=== PATIENT | male | born 1940 | race Caucasian/White ===

== ENCOUNTER → 2024-03-13 | Outpatient (CLI) | payer MEDICARE, SELFPAY ==
[2024-03-13 10:54] LABS: Collection Type, Urine Clean Catch; Squamous Epithelial Cell,Urine 0 /hpf (0-5)
[2024-03-13 11:17] LABS: Basophils % (Auto) 1 % (0-2.5); Eosinophils # (Auto) 0.2 Thou/mm3 (0.0-0.5); Eosinophils % (Auto) 3 % (0-10); Hematocrit 30.6 % (41.0-53.0); Hemoglobin 9.5 g/dL (13.5-16.0); Immature Granulocytes % (Auto) 0 % (0-0); Immature Granulocytes Auto 0.01 Thou/mm3 (0.00-0.00); Lymphocytes # (Auto) 1.2 Thou/mm3 (1.0-4.8); Lymphocytes % (Auto) 21 % (10-50); Mean Corpuscular Hemoglobin 28.2 pg (25.0-35.0); Mean Corpuscular Volume 91 fL (80-100); Monocytes # (Auto) 0.5 Thou/mm3 (0.0-0.8); Monocytes % (Auto) 10 % (0-12); Neutrophils # (Auto) 3.6 Thou/mm3 (1.8-7.7); Neutrophils % (Auto) 66 % (37-80); Nucleated Red Blood Cell % 0 /100 WBC (0); Platelet Count 230 Thou/mm3 (140-440); RDW Standard Deviation 45.9 fL (35.1-43.9); Red Blood Count 3.37 Miln/mm3 (4.50-5.90); White Blood Count 5.5 Thou/mm3 (3.8-10.6)
[2024-03-13 11:18] LABS: Bilirubin,Urine Negative (Negative); Blood,Urine Negative (Negative); Clarity,Urine Clear (Clear/Hazy); Color,Urine Lt-Yellow (Lt Yel-Yel); Glucose, Urine Negative (Negative); Ketones,Urine Negative (Negative); Leukocyte Esterase,Urine Negative (Negative); Nitrite,Urine Negative (Negative); PH,Urine 6.5 (5.0-7.0); Protein,Urine Trace (Neg - Trace); RBC,Urine 2 /hpf (0-3); Specific Gravity,Urine 1.009 (1.001-1.035); Urobilinogen,Urine Negative mg/dL (0.0-1.0); WBC,Urine < 1 /hpf (0-5)
[2024-03-13 11:38] LABS: Glucose Estimated Average 111 mg/dL (80-131); Hemoglobin A1C 5.5 % Hgb (4.8-6.0)
[2024-03-13 11:48] LABS: Anion Gap 8 (7-16); BUN/Creatinine Ratio 13 Ratio (12-20); Blood Urea Nitrogen 32 mg/dL (9-23); Carbon Dioxide 26.1 mMol/L (20.0-31.0); Chloride 103 mMol/L (98-107); Creatinine (Component) 2.4 mg/dL (0.6-1.3); Glucose 111 mg/dL (74-106); Osmolality,Calculated 281 (275-295); Potassium 4.6 mMol/L (3.4-5.1); Sodium 137 mMol/L (136-145); Thyroid Stimulating Hormone 0.55 uIU/mL (0.55-4.78); Uric Acid 8.8 mg/dL (3.7-9.2); eGFR 26 See Note
[2024-03-13 12:01] LABS: Parathyroid Hormone Intact 86.4 pg/ml (18.5-88.0)
[2024-03-20 06:28] LABS: ANCA Screen POSITIVE (NEGATIVE); Myeloperoxidase Ab <1.0 AI (<1.0); Proteinase-3 Ab <1.0 AI (<1.0)
== END | disposition home or self-care (01) ==
LOC: COPL 10:21
PROVIDERS: PCP Internal Medicine; Referring Provider Internal Medicine; Visit Provider Internal Medicine
DX: E11.22 Type 2 diabetes mellitus with diabetic chronic kidney disease (principal); N18.4 Chronic kidney disease, stage 4 (severe); N01.3 Rapidly progressive nephritic syndrome with diffuse mesangial proliferative glomerulonephritis; E03.9 Hypothyroidism, unspecified; N17.9 Acute kidney failure, unspecified
CPT/HCPCS: 36415; 80069; 81001; 83036; 83970; 84443; 84550; 85025; 86021; 86036; 86037

== ENCOUNTER → 2024-06-13 | Outpatient (CLI) | payer MEDICARE, SELFPAY ==
[2024-06-13 10:41] LABS: Basophils % (Auto) 1 % (0-2.5); Eosinophils # (Auto) 0.1 Thou/mm3 (0.0-0.5); Eosinophils % (Auto) 3 % (0-10); Hematocrit 34.2 % (41.0-53.0); Hemoglobin 10.9 g/dL (13.5-16.0); Immature Granulocytes % (Auto) 1 % (0-0); Immature Granulocytes Auto 0.02 Thou/mm3 (0.00-0.00); Lymphocytes # (Auto) 1.1 Thou/mm3 (1.0-4.8); Lymphocytes % (Auto) 25 % (10-50); Mean Corpuscular HGB Conc 31.9 g/dl (31.0-37.0); Mean Corpuscular Hemoglobin 28.2 pg (25.0-35.0); Mean Corpuscular Volume 88 fL (80-100); Monocytes # (Auto) 0.4 Thou/mm3 (0.0-0.8); Monocytes % (Auto) 9 % (0-12); Neutrophils # (Auto) 2.6 Thou/mm3 (1.8-7.7); Neutrophils % (Auto) 62 % (37-80); Nucleated Red Blood Cell % 0 /100 WBC (0); Platelet Count 197 Thou/mm3 (140-440); Red Blood Count 3.87 Miln/mm3 (4.50-5.90); White Blood Count 4.2 Thou/mm3 (3.8-10.6)
[2024-06-13 10:51] LABS: Glucose Estimated Average 108 mg/dL (80-131); Hemoglobin A1C 5.4 % Hgb (4.8-6.0)
[2024-06-13 11:02] LABS: Parathyroid Hormone Intact 144.7 pg/ml (18.5-88.0)
[2024-06-13 11:09] LABS: Vitamin D 25 Hydroxy Total 48.4 ng/mL (7.3-40.2)
[2024-06-13 11:25] LABS: Alanine Aminotransferase 12 U/L (10-49); Albumin/Globulin Ratio 1.9 (1.2-2.2); Alkaline Phosphatase 67 U/L (46-116); Anion Gap 7 (7-16); Aspartate Amino Transferase 14 U/L (0-34); BUN/Creatinine Ratio 17 Ratio (12-20); Bilirubin,Total 0.3 mg/dL (0.3-1.2); Blood Urea Nitrogen 41 mg/dL (9-23); Calcium 9.1 mg/dL (8.3-10.6); Calcium (Corrected) 9.1 mg/dL (8.5-10.1); Carbon Dioxide 23.9 mMol/L (20.0-31.0); Cardiac Risk Estimate 2.6 RATIO (4.0-6.7); Chloride 112 mMol/L (98-107); Cholesterol 124 mg/dL (132-200); Creatinine (Component) 2.4 mg/dL (0.6-1.3); Globulin 2.1 gm/dL (2.3-3.5); Glucose 93 mg/dL (74-106); HDL Cholesterol 48 mg/dL (40-60); LDL Cholesterol,Calculated 62 mg/dL (0-130); Osmolality,Calculated 295 (275-295); Sodium 143 mMol/L (136-145); Thyroid Stimulating Hormone 0.92 uIU/mL (0.55-4.78); Total Protein 6.1 gm/dL (5.7-8.2); Triglycerides 68 mg/dL (30-150); eGFR 26 See Note
[2024-06-13 11:28] LABS: Potassium 6.2 mMol/L (3.4-5.1)
[2024-06-13 11:40] LABS: Collection Type, Urine Clean Catch; Squamous Epithelial Cell,Urine 0 /hpf (0-5)
[2024-06-13 12:29] LABS: Bilirubin,Urine Negative (Negative); Blood,Urine Negative (Negative); Clarity,Urine Clear (Clear/Hazy); Color,Urine Lt-Yellow (Lt Yel-Yel); Glucose, Urine Negative (Negative); Ketones,Urine Negative (Negative); Leukocyte Esterase,Urine Negative (Negative); Nitrite,Urine Negative (Negative); Protein,Urine Negative (Neg - Trace); RBC,Urine 3 /hpf (0-3); Specific Gravity,Urine 1.013 (1.001-1.035); Urobilinogen,Urine Negative mg/dL (0.0-1.0); WBC,Urine < 1 /hpf (0-5)
[2024-06-25 07:05] LABS: ANCA Screen POSITIVE (NEGATIVE); Myeloperoxidase Ab <1.0 AI (<1.0); Proteinase-3 Ab <1.0 AI (<1.0)
== END | disposition home or self-care (01) ==
LOC: COPL 09:31
PROVIDERS: PCP Internal Medicine; Referring Provider Internal Medicine; Visit Provider Internal Medicine
DX: I12.9 Hypertensive chronic kidney disease with stage 1 through stage 4 chronic kidney disease, or unspecified chronic kidney disease (principal); N18.4 Chronic kidney disease, stage 4 (severe); E78.5 Hyperlipidemia, unspecified
CPT/HCPCS: 36415; 80053; 80061; 81001; 82306; 83036; 83970; 84443; 85025; 86021; 86036

== ENCOUNTER → 2024-06-20 | Outpatient (CLI) | payer MEDICARE, SELFPAY ==
[2024-06-20 12:03] LABS: Basophils % (Auto) 0 % (0-2.5); Eosinophils # (Auto) 0.1 Thou/mm3 (0.0-0.5); Eosinophils % (Auto) 2 % (0-10); Hematocrit 33.7 % (41.0-53.0); Hemoglobin 10.5 g/dL (13.5-16.0); Immature Granulocytes % (Auto) 0 % (0-0); Immature Granulocytes Auto 0.01 Thou/mm3 (0.00-0.00); Lymphocytes # (Auto) 1.3 Thou/mm3 (1.0-4.8); Lymphocytes % (Auto) 25 % (10-50); Mean Corpuscular HGB Conc 31.2 g/dl (31.0-37.0); Mean Corpuscular Hemoglobin 28.1 pg (25.0-35.0); Mean Corpuscular Volume 90 fL (80-100); Monocytes # (Auto) 0.5 Thou/mm3 (0.0-0.8); Monocytes % (Auto) 11 % (0-12); Neutrophils # (Auto) 3.1 Thou/mm3 (1.8-7.7); Neutrophils % (Auto) 61 % (37-80); Nucleated Red Blood Cell % 0 /100 WBC (0); Platelet Count 179 Thou/mm3 (140-440); RDW Standard Deviation 44.8 fL (35.1-43.9); Red Blood Count 3.74 Miln/mm3 (4.50-5.90)
[2024-06-20 12:14] LABS: Albumin, Serum 3.9 gm/dL (3.4-4.8); Anion Gap 5 (7-16); BUN/Creatinine Ratio 17 Ratio (12-20); Blood Urea Nitrogen 43 mg/dL (9-23); Calcium 8.9 mg/dL (8.3-10.6); Carbon Dioxide 27.2 mMol/L (20.0-31.0); Chloride 105 mMol/L (98-107); Creatinine (Component) 2.5 mg/dL (0.6-1.3); Glucose 98 mg/dL (74-106); Osmolality,Calculated 284 (275-295); Phosphorous 3.3 mg/dL (2.4-5.1); Potassium 5.4 mMol/L (3.4-5.1); Sodium 137 mMol/L (136-145); eGFR 25 See Note
== END | disposition home or self-care (01) ==
LOC: COPL 11:21
PROVIDERS: PCP Internal Medicine; Referring Provider Internal Medicine; Visit Provider Internal Medicine
DX: N18.4 Chronic kidney disease, stage 4 (severe) (principal)
CPT/HCPCS: 36415; 80069; 85025

== ENCOUNTER → 2024-08-06 | Outpatient (CLI) | payer MEDICARE, SELFPAY ==
[2024-08-06 12:20] LABS: Collection Type, Urine Clean Catch; RBC,Urine 0 /hpf (0-3); WBC,Urine 0 /hpf (0-5)
[2024-08-06 13:05] LABS: Basophils % (Auto) 1 % (0-2.5); Eosinophils # (Auto) 0.2 Thou/mm3 (0.0-0.5); Eosinophils % (Auto) 3 % (0-10); Hematocrit 34.5 % (41.0-53.0); Hemoglobin 10.8 g/dL (13.5-16.0); Immature Granulocytes % (Auto) 0 % (0-0); Immature Granulocytes Auto 0.02 Thou/mm3 (0.00-0.00); Lymphocytes # (Auto) 1.2 Thou/mm3 (1.0-4.8); Lymphocytes % (Auto) 20 % (10-50); Mean Corpuscular HGB Conc 31.3 g/dl (31.0-37.0); Mean Corpuscular Hemoglobin 28.2 pg (25.0-35.0); Mean Corpuscular Volume 90 fL (80-100); Monocytes # (Auto) 0.6 Thou/mm3 (0.0-0.8); Monocytes % (Auto) 10 % (0-12); Neutrophils % (Auto) 66 % (37-80); Nucleated Red Blood Cell % 0 /100 WBC (0); Platelet Count 187 Thou/mm3 (140-440); RDW Standard Deviation 47.1 fL (35.1-43.9); Red Blood Count 3.83 Miln/mm3 (4.50-5.90)
[2024-08-06 13:17] LABS: Albumin, Serum 3.9 gm/dL (3.4-4.8); Anion Gap 5 (7-16); BUN/Creatinine Ratio 15 Ratio (12-20); Blood Urea Nitrogen 31 mg/dL (9-23); Calcium (Corrected) 9.1 mg/dL (8.5-10.1); Carbon Dioxide 29.1 mMol/L (20.0-31.0); Chloride 106 mMol/L (98-107); Creatinine (Component) 2.1 mg/dL (0.6-1.3); Glucose 104 mg/dL (74-106); Osmolality,Calculated 285 (275-295); Phosphorous 3.6 mg/dL (2.4-5.1); Potassium 4.8 mMol/L (3.4-5.1); Sodium 140 mMol/L (136-145); eGFR 31 See Note
[2024-08-06 14:02] LABS: Bilirubin,Urine Negative (Negative); Blood,Urine Negative (Negative); Clarity,Urine Clear (Clear/Hazy); Color,Urine Colorless (Lt Yel-Yel); Glucose, Urine Negative (Negative); Ketones,Urine Negative (Negative); Leukocyte Esterase,Urine Negative (Negative); Nitrite,Urine Negative (Negative); PH,Urine 6.5 (5.0-7.0); Protein,Urine Negative (Neg - Trace); Specific Gravity,Urine 1.008 (1.001-1.035); Squamous Epithelial Cell,Urine < 1 /hpf (0-5); Urobilinogen,Urine Negative mg/dL (0.0-1.0)
[2024-08-06 14:03] LABS: Creatinine MALB Rnd Ur 41 mg/dL (30-125); Microalbumin Creat Ratio 71 mg/gCrea (<30); Microalbumin, Random Urine 29 mg/L (0-300)
== END | disposition home or self-care (01) ==
LOC: COPL 11:32
PROVIDERS: PCP Internal Medicine; Referring Provider Internal Medicine; Visit Provider Internal Medicine
DX: I12.9 Hypertensive chronic kidney disease with stage 1 through stage 4 chronic kidney disease, or unspecified chronic kidney disease (principal); E78.5 Hyperlipidemia, unspecified; I10 Essential (primary) hypertension; N18.4 Chronic kidney disease, stage 4 (severe)
CPT/HCPCS: 36415; 80069; 81001; 82043; 82570; 83970; 85025

== ENCOUNTER → 2024-10-22 | Outpatient (CLI) | payer MEDICARE, SELFPAY ==
--- NOTE | 2024-10-22 12:20 | XR_ITS ---
Examination: Bone densitometry Date and time of exam:October 22, 2024 at 1226 hours INDICATIONS: 84-year-old male with diagnosis age related osteoporosis Technique: Lumbar spine and hip total bone mineralization values of an calculated. Peak reference and age match control results have been displayed. Findings: Lumbar spine total bone mineralization is1.249 gm/cm2. This is 1.4 standard deviations above peak reference. This is 2.7 standard deviations above age-matched controls. Hip total bone mineralization is 0.748 gm/cm2 This is 1.9 standard deviations below peak reference. This is 0.7 standard deviations above age-matched controls Impression: There is normal mineralization based on lumbar spine measurements. There is osteoporosis based on hip measurements
== END | disposition home or self-care (01) ==
LOC: CDIM 11:56
PROVIDERS: PCP Internal Medicine; Referring Provider Internal Medicine; Visit Provider Internal Medicine
DX: M81.0 Age-related osteoporosis without current pathological fracture (principal)
CPT/HCPCS: 77080

== ENCOUNTER → 2024-11-08 | Outpatient (CLI) | payer MEDICARE, SELFPAY ==
[2024-11-08 11:48] LABS: Collection Type, Urine Clean Catch; Squamous Epithelial Cell,Urine 0 /hpf (0-5)
[2024-11-08 12:23] LABS: Bilirubin,Urine Negative (Negative); Blood,Urine 2+ (Negative); Clarity,Urine Clear (Clear/Hazy); Color,Urine Lt-Yellow (Lt Yel-Yel); Glucose, Urine Negative (Negative); Ketones,Urine Negative (Negative); Leukocyte Esterase,Urine Negative (Negative); Nitrite,Urine Negative (Negative); PH,Urine 6.5 (5.0-7.0); Protein,Urine Trace (Neg - Trace); RBC,Urine 27 /hpf (0-3); Specific Gravity,Urine 1.014 (1.001-1.035); Urobilinogen,Urine Negative mg/dL (0.0-1.0); WBC,Urine 1 /hpf (0-5)
[2024-11-08 12:29] LABS: Basophils # (Auto) 0.0 Thou/mm3 (0.0-0.2); Basophils % (Auto) 0 % (0-2.5); Eosinophils # (Auto) 0.1 Thou/mm3 (0.0-0.5); Eosinophils % (Auto) 1 % (0-10); Hematocrit 33.1 % (41.0-53.0); Hemoglobin 10.2 g/dL (13.5-16.0); Immature Granulocytes Auto 0.01 Thou/mm3 (0.00-0.00); Lymphocytes # (Auto) 1.1 Thou/mm3 (1.0-4.8); Lymphocytes % (Auto) 21 % (10-50); Mean Corpuscular HGB Conc 30.8 g/dl (31.0-37.0); Mean Corpuscular Hemoglobin 28.3 pg (25.0-35.0); Mean Corpuscular Volume 92 fL (80-100); Monocytes # (Auto) 0.5 Thou/mm3 (0.0-0.8); Monocytes % (Auto) 9 % (0-12); Neutrophils # (Auto) 3.5 Thou/mm3 (1.8-7.7); Neutrophils % (Auto) 68 % (37-80); Nucleated Red Blood Cell # 0.00 Thou/mm3 (0.00-0.00); Nucleated Red Blood Cell % 0 /100 WBC (0); Platelet Count 200 Thou/mm3 (140-440); RDW Standard Deviation 46.9 fL (35.1-43.9); Red Blood Count 3.60 Miln/mm3 (4.50-5.90); White Blood Count 5.1 Thou/mm3 (3.8-10.6)
[2024-11-08 12:41] LABS: Parathyroid Hormone Intact 586.0 pg/ml (18.5-88.0)
[2024-11-08 12:44] LABS: Albumin, Serum 3.8 gm/dL (3.4-4.8); Anion Gap 6 (7-16); BUN/Creatinine Ratio 11 Ratio (12-20); Blood Urea Nitrogen 26 mg/dL (9-23); Calcium 7.9 mg/dL (8.3-10.6); Calcium (Corrected) 8.1 mg/dL (8.5-10.1); Carbon Dioxide 26.8 mMol/L (20.0-31.0); Chloride 108 mMol/L (98-107); Creatinine (Component) 2.3 mg/dL (0.6-1.3); Glucose 113 mg/dL (74-106); Osmolality,Calculated 286 (275-295); Phosphorous 2.0 mg/dL (2.4-5.1); Potassium 4.7 mMol/L (3.4-5.1); Sodium 141 mMol/L (136-145); eGFR 27 See Note
[2024-11-08 12:57] LABS: Creatinine MALB Rnd Ur 119 mg/dL (30-125); Microalbumin Creat Ratio 100 mg/gCrea (<30); Microalbumin, Random Urine 119 mg/L (0-300)
== END | disposition home or self-care (01) ==
LOC: COPL 11:11
PROVIDERS: PCP Internal Medicine; Referring Provider Internal Medicine; Visit Provider Internal Medicine
DX: I12.9 Hypertensive chronic kidney disease with stage 1 through stage 4 chronic kidney disease, or unspecified chronic kidney disease (principal); N18.4 Chronic kidney disease, stage 4 (severe); E78.5 Hyperlipidemia, unspecified
CPT/HCPCS: 36415; 80069; 81001; 82043; 82570; 83970; 85025

== ENCOUNTER 2025-01-15 09:05 | Inpatient (IN) | payer MEDICARE, SELFPAY ==
[2025-01-15] VITALS (9 sets, daily range): BP systolic 140–170; BP diastolic 74–102; PULSE 67–89; RESP 12–92; TEMP 36.2–36.9; O2SAT 95–98
--- NOTE | 2025-01-15 09:17 | EKG_ITS ---
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
--- NOTE | 2025-01-15 09:17 | PD.EDWEAK ---
ED Weakness RME/HPI General Chief complaint: General Adult/[facility] Complain Stated complaint: POSS STROKE, SENT BY DR. TANG Time Seen by Provider: 01/15/25 09:16 Arrival date/time: 01/15/25 09:05 RME / HPI RME / HPI Narrative: 84 year old male with history of TIA, hypertension, renal insufficiency in 2018 presents to the ED, accompanied by who provides the history, for evaluation of global weakness and confusion today. states they drove to [place], [place] 1 week ago. States usually with any travel the patient needs to take medications to help calm him down. States during their drive 1 week ago the patient took Tylenol PM at 10pm, 12am, and 5am. adds he hasn't been the same since . During their trip, described the patient to be confused, lethargic, and sleeping more than usual. On Tuesday and Tuesday night took two Tylenol PMs. states they returned home Tuesday and yesterday the patient slept all day . Evidently at baseline, the patient at baseline is awake, conversive, and joking around. This morning patient had no balance while walking and required assistance. They consulted with PCP Dr. Tang and sent here for further evaluation. Patient last known well 01/08/2025. Related Data Home Medications ?Medication ?Instructions ?Recorded ?Confirmed doxazosin 2 mg tablet 4 mg PO BID 07/01/17 01/07/22 aspirin 81 mg chewable tablet 81 mg PO DAILY 10/08/17 01/07/22 buspirone 15 mg tablet 15 mg PO DAILY 10/08/17 01/07/22 amlodipine 5 mg-benazepril 20 mg 1 cap PO QDAY 06/11/19 01/07/22 capsule atorvastatin 10 mg tablet 10 mg PO QDAY 06/11/19 01/07/22 calcifediol 30 mcg capsule,24 30 mcg PO QDAY 06/11/19 01/07/22 hr,extended release (Rayaldee) cyanocobalamin (vitamin B-12) 1,000 mcg PO QDAY 06/11/19 01/07/22 1,000 mcg tablet epoetin jovanna 10,000 unit/mL 10,000 unit subcut QWEEK 06/11/19 01/07/22 injection solution (Procrit) furosemide 20 mg tablet (Lasix) 20 mg PO QDAY 06/11/19 01/07/22 lorazepam 2 mg tablet (Ativan) 2 mg PO QDAY PRN Anxiety 06/11/19 01/07/22 Allergies Allergy/AdvReac Type Severity Reaction Status Date / Time No Known Allergies Allergy Verified 01/15/25 09:06 Review of Systems Review of Systems ROS Unobtainable: unobtainable due to mental status Past Medical History Past Medical History NEUROLOGIC: Positive Neurological Disorders and Cerebrovascular Accident CARDIAC: Positive Cardiac Disorders, Hypercholesterolemia and Hypertension RESPIRATORY: Positive Asthma GASTROINTESTINAL: Positive Gastrointestinal Disorders GENITOURINARY: Positive Renal Disease MUSCULOSKELETAL: Positive Musculoskeletal Disorders and Gout ENT: Positive Cataracts (BILAT) HEMATOLOGIC: Positive Blood Disorders and Anemia PSYCHO/SOCIAL: Positive Depression and Anxiety Family History FAMILY HISTORY: Positive Family Cardiac Disorders and Family Cancer Surgical History SURGICAL: Positive Tonsillectomy, Adenoidectomy, Joint Replacement (RIGHT KNEE) and Vasectomy Social History SMOKING STATUS: Former smoker ED Exam Narrative Physical exam: GENERAL APPEARANCE: alert, awake, well-developed, well-nourished HEENT: Normocephalic, atraumatic; pupils equal, round, reactive to light; EOMI; mucous membranes pink, moist; oropharynx clear NECK: Supple LUNGS: CTABL; no wheezes, no rales, no rhonchi HEART: Regular rate, regular rhythm; normal S1, S2; no murmurs ABDOMEN: non distended; normal BS; soft, no tenderness, no guarding, no rebound; no masses, no organomegaly, no hernia EXTREMITIES: atraumatic; no edema NEUROLOGIC: awake; alert; cranial nerves II-XII grossly intact; no focal sensory or motor deficits PSYCHIATRIC: appropriate mood and affect SKIN: warm, dry, normal color; no rashes Course Course Course Narrative: Labs reviewed, patient has worsening kidney function. Creatinine is 8.5. Calcium is 13.1. I spoke with patients PCP Dr. Tang. Discussed patients PMHx, HPI, ED course, exam findings, labs, and radiology results. She accepts the patient for admission. Quality Measures none Orders Category Date Time Status CT Screening NOW Care 01/15/25 09:17 Active Weigher Alloy NOW Care 01/15/25 09:17 Active EKG (ED ONLY) *Do not use* NOW Care 01/15/25 09:17 Completed Strict Intake and Output Routine Care 01/15/25 12:55 Ordered Diet Renal Diet 01/15/[address] angio carotid w head w Stat Exams 01/15/25 09:[address] head/brain wo con Stat Exams 01/15/25 09:17 Completed EKG (ED Only) Stat Exams 01/15/25 09:17 Draft US renal BI Stat Exams 01/15/25 12:54 Taken XR chest 1V portable Stat Exams 01/15/25 09:17 Completed Alcohol, Blood Medical Stat Lab 01/15/25 10:18 Completed B-Type Natriuretic Peptide Stat Lab 01/15/25 10:18 Completed CBC Stat Lab 01/15/25 10:18 Completed Comprehensive Metabolic Panel Stat Lab 01/15/25 10:18 Completed Drug Screen,Urine Stat Lab 01/15/25 11:56 Completed Lipase Stat Lab 01/15/25 10:18 Completed Magnesium Stat Lab 01/15/25 10:18 Completed PTH [Parathyroid Hormone Intact] Stat Lab 01/15/25 10:18 Completed Partial Thromboplastin Time Stat Lab 01/15/25 10:18 Completed Prothrombin Time with INR Stat Lab 01/15/25 10:18 Completed Troponin I Stat Lab 01/15/25 10:18 Completed UA, C/S IF [Urinalysis, C/S if Indicated] Stat Lab 01/15/25 11:56 Completed Sodium Chloride 0.9% 1000 ml [Ns] 1,000 ml Med 01/15/25 11:30 Discontinued IV 999 mls/hr Vital Signs Vital signs: Vital Signs Temperature 97.9 F 01/15/25 09:05 Pulse Rate 67 01/15/25 09:05 Respiratory Rate 18 01/15/25 09:05 Blood Pressure 163/74 H 01/15/25 09:05 Pulse Oximetry (%) 98 01/15/25 09:05 Oxygen Delivery Method Room Air 01/15/25 09:05 Pulse ox is 98% on room air which is adequate. Weakness MDM Narrative MDM Narrative:: Arielle Greenberg am scribing for and in the presence of Dr. Negron. Patient data External records reviewed:: [facility] previous records Clinical information provided by:: spouse Social determinants that could affect healthcare access:: none Patient has the following chronic illnesses:: TIA, hypertension, renal insufficiency in 2018 How is presenting disease/condition affected by chronic disease/condition?: exacerbated by Evaluation data The following diagnostics were reviewed and interpreted by me:: lab results, radiology exam(s) and EKG tracing(s) (EKG @ 09:34 AM. Atrial fibrillation, rate 75, mild diffuse flattening of ST segments. ) Lab and/or radiology exams considered but not ordered:: None Interpretation Summary: Ordering Physician: Isabela Negron MD Date of Service: 01/15/25 Procedure(s): XR chest 1V portable Accession Number(s): [id number] cc: James Buchanan MD; Isabela Negron MD; Diamond Tang MD~ EXAMINATION: AP chest single view TECHNIQUE: Portable AP sitting chest single view Date and time: January 15, 2025, 0938 hours INDICATIONS: Onset chest pain today. FINDINGS: Minimal prominence left ventricle Mild vascular congestion. No lobar pneumonia or pulmonary edema IMPRESSION: Mild vascular congestion Dictated By: James Buchanan MD Signed By: <Electronically signed by James Buchanan MD in OV> 01/15/25 1217 Ordering Physician: Isabela Negron MD Date of Service: 01/15/25 Procedure(s): CT head/brain wo con Accession Number(s): [id number] cc: James Buchanan MD; Isabela Negron MD; Diamond Tang MD~ Examination: CT brain head without contrast. 2-D sagittal coronal reconstructions Date and time of exam: January 15, 2025, 0952 hours INDICATIONS: Altered mental status today COMPARISON: October 08, 2017 CTDI: vol (mGy): 53.4 DLP: (mGycm): 1110 Technique: Multiple CT axial sections of the brain have been obtained, 5 mm slice thickness. Contrast has not been administered. 2-D sagittal, coronal reconstructions have been obtained Low dose protocols were performed. One or more of the following dose reduction techniques were used; automated exposure control, adjustment of the mA and/or KV according to patient size, use of iterative reconstruction technique. Findings: No significant ventricular enlargement. Stable encephalomalacia right occipital lobe compared with October 08, 2017 Intra-axial or extra-axial hemorrhage density is not seen. No mass effect or midline shift Basal cisterns are not remarkable. Fourth ventricle is midline. Cranial vault intact. Impression: Negative for acute hemorrhage, mass effect or midline shift Advise clinical correlation and follow-up accordingly Dictated By: James Buchanan MD Signed By: <Electronically signed by James Buchanan MD in OV> 01/15/25 1038 Medications / Prescriptions Medications or Prescriptions considered but not ordered:: None Medication administrations:: Medication Administration History Sodium Chloride (Ns) 1,000 mls @ 125 mls/hr IV .Q8H ZULEYMA Stop: 02/14/25 12:55 Last Admin: 01/15/25 13:09 Dose: 125 mls/hr Documented By: ED Discontinued Medications Sodium Chloride (Ns) 1,000 mls @ 999 mls/hr IV .Q1H1M ONE Stop: 01/15/25 12:30 Last Infusion: 01/15/25 12:39 Dose: Infused Documented By: Admin: 01/15/25 11:38 Dose: 999 mls/hr Documented By: ED See above Consultations Consultation(s) initiated? (list below): Yes Consultation #1 (Physician, Specialty, Details): See course Diagnosis Weakness Differential Diagnosis: anemia, hypothyroidism, sepsis and dehydration Most likely diagnosis given after review of the tests above:: Hypercalcemia Acute renal failure Altered mental status Admission Indicated Admission indicated?: indicated Admission Request Was there a request for admission?: Yes Admission Attestation Admission request attestation: Discussed case with [] from Hospitalist service regarding admission. Discussed patients ED course, exam findings, labs, and radiology results. The Hospitalist [agrees,declines] to accept the patient for admission. Disposition Plan Disposition Plan: Admit Discharge Plan Plan Patient Disposition: Admit Acute Care w/in Hospital Problem List Clinical Impression: Hypercalcemia, Altered mental status, Acute renal failure
--- NOTE | 2025-01-15 09:45 | PC.NURSE ---
Pt. here from home to room 19, pt. states last week he got off balance. Pt. states he was never dizzy, just off balance. Pt. states he took Tylenol PM last week when he was traveling to sleep and it affected him different this time. Pt. states he is still off balance but no dizziness. Pt.'s states 3 months ago they were told by Dr. Ward that his kidneys were only operating at 27%, states pt. gets them checked every 3 months. No s/s of distress at this time.
--- NOTE | 2025-01-15 09:51 | PC.NURSE ---
Amelie with registration is bedside talking with pt. and helping pt. get on pt.'s portal.
[2025-01-15 10:52] LABS: Basophils # (Auto) 0.0 Thou/mm3 (0.0-0.2); Basophils % (Auto) 0 % (0-2.5); Eosinophils # (Auto) 0.2 Thou/mm3 (0.0-0.5); Eosinophils % (Auto) 2 % (0-10); Hematocrit 32.2 % (41.0-53.0); Hemoglobin 10.4 g/dL (13.5-16.0); Immature Granulocytes Auto 0.02 Thou/mm3 (0.00-0.00); Lymphocytes # (Auto) 1.3 Thou/mm3 (1.0-4.8); Lymphocytes % (Auto) 17 % (10-50); Mean Corpuscular HGB Conc 32.3 g/dl (31.0-37.0); Mean Corpuscular Hemoglobin 28.5 pg (25.0-35.0); Mean Corpuscular Volume 88 fL (80-100); Monocytes # (Auto) 0.7 Thou/mm3 (0.0-0.8); Monocytes % (Auto) 9 % (0-12); Neutrophils # (Auto) 5.2 Thou/mm3 (1.8-7.7); Neutrophils % (Auto) 70 % (37-80); Nucleated Red Blood Cell # 0.00 Thou/mm3 (0.00-0.00); Nucleated Red Blood Cell % 0 /100 WBC (0); Platelet Count 237 Thou/mm3 (140-440); RDW Standard Deviation 43.8 fL (35.1-43.9); Red Blood Count 3.65 Miln/mm3 (4.50-5.90); White Blood Count 7.4 Thou/mm3 (3.8-10.6)
[2025-01-15 11:03] LABS: INR 1.0 (0.9-1.3); Partial Thromboplastin Time 27.0 Seconds (22.0-36.0); Prothrombin Time 10.6 Seconds (9.0-12.2)
[2025-01-15 11:05] LABS: B-Type Natriuretic Peptide 134 pg/mL (0-100)
[2025-01-15 11:12] LABS: Alanine Aminotransferase 11 U/L (10-49); Albumin, Serum 3.9 gm/dL (3.4-4.8); Albumin/Globulin Ratio 1.6 (1.2-2.2); Alcohol, Blood Medical < 3.0 mg/dL (0-10.0); Alkaline Phosphatase 64 U/L (46-116); Anion Gap 12 (7-16); Aspartate Amino Transferase 22 U/L (0-34); BUN/Creatinine Ratio 7 Ratio (12-20); Bilirubin,Total 0.3 mg/dL (0.3-1.2); Blood Urea Nitrogen 63 mg/dL (9-23); Carbon Dioxide 28.3 mMol/L (20.0-31.0); Chloride 101 mMol/L (98-107); Creatinine (Component) 8.5 mg/dL (0.6-1.3); Globulin 2.4 gm/dL (2.3-3.5); Glucose 107 mg/dL (74-106); Lipase 51 U/L (12-53); Magnesium 1.8 mg/dL (1.6-2.6); Osmolality,Calculated 299 (275-295); Potassium 3.5 mMol/L (3.4-5.1); Sodium 141 mMol/L (136-145); Total Protein 6.3 gm/dL (5.7-8.2); Troponin I 0.023 ng/mL (0.0-0.045); eGFR 6 See Note
[2025-01-15 11:14] LABS: Calcium 13.1 mg/dL (8.3-10.6); Calcium (Corrected) 13.2 mg/dL (8.5-10.1)
--- NOTE | 2025-01-15 11:29 | PC.NURSE ---
Eliel from CT called and stated he can't inject pt. with contrast because of his labs regarding kidney function, Dr. Negron informed and stated she knows she will cancel CT with contrast.
[2025-01-15] MEDS: SODIUM CHLORIDE 0.9% 1000 ML 1,000 ML 999 ML IV (11:38)
[2025-01-15 12:05] LABS: Collection Type, Urine Clean Catch
[2025-01-15 12:13] LABS: Bilirubin,Urine Negative (Negative); Blood,Urine Trace (Negative); Clarity,Urine Clear (Clear/Hazy); Color,Urine Lt-Yellow (Lt Yel-Yel); Culture Indicated,Urine Not Indicated; Glucose, Urine Negative (Negative); Hyaline Casts,Urine < 1 /hpf (0-1); Ketones,Urine Negative (Negative); Leukocyte Esterase,Urine Negative (Negative); Nitrite,Urine Negative (Negative); PH,Urine 6.0 (5.0-7.0); Protein,Urine 1+ (Neg - Trace); RBC,Urine 1 /hpf (0-3); Specific Gravity,Urine 1.013 (1.001-1.035); Squamous Epithelial Cell,Urine < 1 /hpf (0-5); Urobilinogen,Urine Negative mg/dL (0.0-1.0); WBC,Urine 1 /hpf (0-5)
[2025-01-15 12:21] LABS: Amphetamine/Methamp Scrn,U Negative (Negative); Barbiturate Screen,Urine Negative (Negative); Benzodiazepines Screen,Urine Negative (Negative); Benzoylecgonine Screen, Ur Negative (Negative); Fentanyl Screen,Urine Negative (Negative); Opiate Screen,Urine Negative (Negative); THC Screen,Urine Negative (Negative)
--- NOTE | 2025-01-15 12:45 | PC.NURSE ---
Dr. Ward is bedside talking with pt. and pt.'s .
--- NOTE | 2025-01-15 12:54 | XR_ITS ---
Examination: Retroperitoneal ultrasound, complete Technique: Multiple high resolution grayscale images of the retroperitoneum obtained, including kidneys and bladder. Exam date and time: January 15, 2025, 1351 hours INDICATIONS: Acute renal insufficiency on laboratory examination today. FINDINGS: Right kidney 11.1 cm renal cortex 1.0 cm Left kidney 11.3 cm renal cortex 1.4 cm Moderate renal scar formation No bladder mass or bladder calculi. Bladder prevoid volume 227 cc Prostate 4.8 x 3.9 x 3.8 cm volume 37.2 cc no prostate nodules IMPRESSION: Bilateral renal cortical thinning Moderate bilateral renal parenchymal scar formation. No hydronephrosis
[2025-01-15] MEDS: SODIUM CHLORIDE 0.9% 1000 ML 1,000 ML 125 ML IV ×2 (13:09→21:44)
[2025-01-15 13:33] LABS: Parathyroid Hormone Intact 42.2 pg/ml (18.5-88.0)
--- NOTE | 2025-01-15 13:42 | PC.NURSE ---
Pt. using urinal, pt. refuses troncoso insertion.
--- NOTE | 2025-01-15 14:05 | PC.NURSE ---
US is bedside.
[2025-01-15 14:46] LABS: Hepatitis A Antibody IgM Non Reactive (Non React); Hepatitis B Core Antibody IgM Non Reactive (Non React); Hepatitis B Surface Antigen Non Reactive (Non React); Hepatitis C Antibody Non Reactive (Non React); Vitamin D 25 Hydroxy Total 56.5 ng/mL (7.3-40.2)
--- NOTE | 2025-01-15 15:18 | ESHP_ITS ---
Documentation for date of: 01/15/25 [facility] History of Present Illness Chief complaint: Altered mental status History of present illness: Informant Nidhi Location ER Mr. Sin is a 79-year-old gentleman with a past medical history significant for hypertension, PANCA vasculitis, chronic kidney disease III/IV (baseline creatinine ~2.3 since 2019), and prior TIA (2018) secondary hyperparathyroidism (on calcitriol), anemia (on Procrit,)HLD, Anxiety was referred from his primary care physician( DR. Ward) for altered mental status patient went to [place] for a trip last week and while during the trip patient reports feeling progressively fatigued for the past several days and mildly short of breath with exertion but denies chest pain, orthopnea, PND, lower-extremity swelling, fever, chills, nausea, vomiting, diarrhea, abdominal pain, dysuria, or changes in urine color. stated patient has been very slow in response and confused. Does have gait imbalance. Decreased appetite for the last few days. No dizziness, or syncope. No recent contrast exposure, illness, or new medications aside from his usual antihypertensives and supplements. He takes Rayaldee//calcitriol for secondary hyperparathyroidism but no other vitamin D or calcium products. He was found to have Cr 8.5 mg/dL (from baseline 2.3), BUN 63, eGFR 6, and Ca 13.2 mg/dL. PTH is normal. UA was negative for infection. Chest X-ray showed mild vascular congestion. Head CT negative for acute hemorrhage. EKG showed atrial fibrillation without acute ischemic changes. He was sent to the ED for further evaluation and admission for EDWARD on CKD and hypercalcemia. Review of Systems: Negative unless stated above Past Medical History: * Hypertension * PANCA Vasculitis with renal involvement (2018)--received Cytoxan, prednisone * Chronic kidney disease IIIb/ IV (baseline Cr ~ 2.3 since 2019) * Transient ischemic attack (2018) * Hyperlipidemia * Anemia * Secondary hyperparathyroidism * Anxiety * BPH Past Surgical History: * Sebaceous cyst removal (2007) * Bilateral cataract extraction (2014) * Right knee replacement (2018) * Kidney biopsy Home Medications: (med recs pending) * Doxazosin * Amlodipine * Atorvastatin * Buspirone * Rayaldee (calcifediol) * Procrit * Cyanocobalamin (B12) Allergies: No known drug allergies Family History: Non-contributory 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 History: * 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 * Smokes 1 pack/day * Drinks alcohol 3?4?/week * Denies illicit drug use * Lives independently Review of Systems Review of Systems Narrative Review of Systems: Patient confused Exam Vital Signs Temp Pulse Resp BP Pulse Ox O2 Del Method 97.8 F 88 16 163/83 H 97 Room Air 01/15/25 13:00 01/15/25 13:00 01/15/25 13:00 01/15/25 13:00 01/15/25 13:00 01/15/25 13:00 Narrative Exam General: Elderly male, alert, oriented, no acute distress HEENT: Anicteric, mucous membranes mildly dry Neck: No JVD, no lymphadenopathy Cardiac: Irregularly irregular rhythm, no murmurs/rubs/gallops Lungs: Mild bibasilar crackles, no wheezing Abdomen: Soft, non-tender, no organomegaly Extremities: No cyanosis, clubbing, or edema Neuro: Alert, oriented ? 3, no focal deficits. Seems to be slow in response with some confusion noted. definite memory lapses noted. Skin: Warm, no rash or lesions Results: Labs 01/15/25 10:18 01/15/25 10:18 Labs: Short CBC 01/15/25 Range/Units 10:18 WBC 7.4 (3.8-10.6) Thou/mm3 Hgb 10.4 L (13.5-16.0) g/dL Hct 32.2 L (41.0-53.0) % Plt Count 237 (140-440) Thou/mm3 BMP 01/15/25 10:18 Sodium 141 Potassium 3.5 Chloride 101 Carbon Dioxide 28.3 BUN 63 H Creatinine 8.5 H* Glucose 107 H Calcium 13.1 H* Cardiac Enzymes 01/15/25 Range/Units 10:18 Troponin I 0.023 (0.0-0.045) ng/mL Liver Function 01/15/25 Range/Units 10:18 Total Bilirubin 0.3 (0.3-1.2) mg/dL AST 22 (0-34) U/L ALT 11 (10-49) U/L Alkaline Phosphatase 64 (46-116) U/L Albumin 3.9 (3.4-4.8) gm/dL Urine 01/15/25 Range/Units 11:56 Urine Color Lt-Yellow (Lt Yel-Yel) Urine Clarity Clear (Clear/Hazy) Urine pH 6.0 (5.0-7.0) Ur Specific [place] 1.013 (1.001-1.035) Urine Protein 1+ A (Neg - Trace) Urine Glucose (UA) Negative (Negative) Quality Measures Quality Measures VTE prophylaxis Advance care planning discussed with:: patient and spouse Medications Home Medications and Allergies Home Medications ?Medication ?Instructions ?Recorded ?Confirmed ?Type doxazosin 2 mg tablet 4 mg PO BID 07/01/17 2 History aspirin 81 mg chewable tablet 81 mg PO DAILY 10/08/17 01/07/22 History buspirone 15 mg tablet 15 mg PO DAILY 10/08/1712/11 History amlodipine 5 mg-benazepril 20 mg 1 cap PO QDAY 0 01/07/22 History capsule atorvastatin 10 mg tablet 10 mg PO QDAY 06/11/1901/07 History calcifediol 30 mcg capsule,24 30 mcg PO QDAY 06/11/19 01/07/22 History hr,extended release (Rayaldee) cyanocobalamin (vitamin B-12) 1,000 mcg PO QDAY 01/07/22 History 1,000 mcg tablet epoetin jovanna 10,000 unit/mL 10,000 unit subcut QWEEK 0 06/11/19 01/07/22 History injection solution (Procrit) furosemide 20 mg tablet (Lasix) 20 mg PO QDAY 06/11/19 01/07/22 History lorazepam 2 mg tablet (Ativan) 2 mg PO QDAY PRN Anxiet y 06/11/19 01/07/22 History Allergies Allergy/AdvReac Type Severity Reaction Status Date / Time No Known Allergies Allergy Verified 01/15/25 09:06 Visit Medications Sodium Chloride (Ns) 1,000 mls @ 125 mls/hr IV .Q8H ZULEYMA Stop: 02/14/25 12:55 Last Admin: 01/15/25 13:09 Dose: 125 mls/hr Discontinued Medications Sodium Chloride (Ns) 1,000 mls @ 999 mls/hr IV .Q1H1M ONE Stop: 01/15/25 12:30 Last Infusion: 10/07/25 12:39 Dose: Infused Assessment & Plan Plan 79-year-old male with CKD (baseline Cr 2.3) secondary to vasculitis presenting with acute kidney injury (Cr 8.5) and hypercalcemia (Ca 13.2) with normal PTH and elevated 25-OH vitamin D, consistent with vitamin D?induced hypercalcemia from Rayaldee (calcifediol). Mild volume overload on CXR, no uremic symptoms, stable vitals. # Acute kidney injury on chronic kidney disease Likely multifactorial: vitamin D?related hypercalcemia causing nephropathy ? pre-renal from (volume depletion, vasculitis history, or progression of CKD). 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 Plan: * Hold Rayaldee and any Ca/Vit D supplements/patient also taking calcitriol PTH was 526. As his last cContinue IV NS hydration * Monitor Ca and BMP daily * If Ca > 12 persistent or symptomatic--> will consider calcitonin or pamidronate * Monitor for polyuria, confusion, arrhythmias # Atrial fibrillation (new per patient) Rate controlled; no acute ischemic changes. (CHADSVASc >=4 --> likely benefit from anticoag) Plan: * Continue telemetry monitoring * Evaluate need for rate control (metoprolol if HR > 110 sustained) * Review anticoagulation options after renal function stabilizes (CHADSVASc >=4 --> likely benefit) # Hypertension Controlled on home regimen. Plan: * Continue home meds pending med recs * Hold Home Doxazosin temporarily until euvolemic # Anemia of CKD Hgb 10.4 g/dL, on Procrit outpatient. Plan: * Continue home procrit if due soon * Check iron panel, ferritin, TIBC #Tobacco use disorder Plan: * Counseling on cessation * Offer nicotine patch PRN if patient requests # Hyperlipidemia Plan: * Continue home med Atorvastatin Health Maintenance Diet: Renal, low sodium IVF: NS @ 125 mL/hr Smith: Place for accurate I&O Thromboprophylaxis: Heparin 5,000 U SC q12hr GI Prophylaxis: Famotidine 20 mg daily Disposition: Admit to telemetry, monitor renal function Code Status: Full ----- Plan discussed with attending physician Dr. Sylvia Franco MD PGY-1 Internal Medicine Attending Provider Attestation/Addendum Patient seen and examined with resident physician Dr. Franco. Note reviewed, agree with findings and recommendations. Patient seen and ER. Nidhi at bedside. Admitted with severe hypercalcemia, acute renal failure. If no improvement in renal function or confusion in a.m. despite IV fluids will plan for dialysis tomorrow. agreed for the plan.
[2025-01-15 17:15] LABS: Iron 31 mcg/dL (65-175); Percent Iron Saturation 15 % (20-55); Total Iron Binding Capacity 206 mcg/dL (250-425); Unsaturated Iron Binding 175 (225-295)
--- NOTE | 2025-01-15 18:33 | PC.NURSE ---
2 warm blankets given, pt.'s spouse is bedside.
[2025-01-15] MEDS: HEPARIN SOD INJ 5000 UNIT/ML VIAL SC (21:42)
[2025-01-16] VITALS (11 sets, daily range): BP systolic 143–197; BP diastolic 69–110; PULSE 70–100; RESP 14–23; TEMP 36.2–36.8; O2SAT 95–97
[2025-01-16] MEDS: SODIUM CHLORIDE 0.9% 1000 ML 1,000 ML 125 ML IV ×2 (05:35→15:10)
[2025-01-16 05:59] LABS: Basophils # (Auto) 0.0 Thou/mm3 (0.0-0.2); Basophils % (Auto) 1 % (0-2.5); Eosinophils # (Auto) 0.3 Thou/mm3 (0.0-0.5); Eosinophils % (Auto) 4 % (0-10); Hematocrit 29.1 % (41.0-53.0); Hemoglobin 9.5 g/dL (13.5-16.0); Immature Granulocytes Auto 0.03 Thou/mm3 (0.00-0.00); Lymphocytes # (Auto) 1.1 Thou/mm3 (1.0-4.8); Lymphocytes % (Auto) 19 % (10-50); Mean Corpuscular HGB Conc 32.6 g/dl (31.0-37.0); Mean Corpuscular Hemoglobin 28.6 pg (25.0-35.0); Mean Corpuscular Volume 88 fL (80-100); Monocytes # (Auto) 0.6 Thou/mm3 (0.0-0.8); Monocytes % (Auto) 11 % (0-12); Neutrophils # (Auto) 3.6 Thou/mm3 (1.8-7.7); Neutrophils % (Auto) 64 % (37-80); Nucleated Red Blood Cell # 0.00 Thou/mm3 (0.00-0.00); Nucleated Red Blood Cell % 0 /100 WBC (0); Platelet Count 203 Thou/mm3 (140-440); RDW Standard Deviation 43.2 fL (35.1-43.9); Red Blood Count 3.32 Miln/mm3 (4.50-5.90); White Blood Count 5.6 Thou/mm3 (3.8-10.6)
[2025-01-16 06:27] LABS: Albumin, Serum 3.5 gm/dL (3.4-4.8); Anion Gap 12 (7-16); BUN/Creatinine Ratio 6 Ratio (12-20); Blood Urea Nitrogen 49 mg/dL (9-23); Calcium 11.3 mg/dL (8.3-10.6); Calcium (Corrected) 11.7 mg/dL (8.5-10.1); Carbon Dioxide 25.7 mMol/L (20.0-31.0); Chloride 108 mMol/L (98-107); Creatinine (Component) 7.7 mg/dL (0.6-1.3); Glucose 86 mg/dL (74-106); Magnesium 1.5 mg/dL (1.6-2.6); Osmolality,Calculated 302 (275-295); Phosphorous 4.9 mg/dL (2.4-5.1); Potassium 3.5 mMol/L (3.4-5.1); Sodium 146 mMol/L (136-145); eGFR 6 See Note
[2025-01-16] MEDS: HEPARIN SOD INJ 5000 UNIT/ML VIAL SC ×2 (09:03→20:30)
[2025-01-16] MEDS: FAMOTIDINE INJ 10 MG/ML VIAL 2 ML 20 MG IVP (09:03)
--- NOTE | 2025-01-16 09:44 | ESPR_ITS ---
Documentation for date of: 01/16/25 Subjective Subjective Interval history: Mr. Sin is a 79-year-old gentleman with a past medical history significant for hypertension, PANCA vasculitis, chronic kidney disease III/IV (baseline creatinine ~2.3 since 2019), and prior TIA (2018) secondary hyperparathyroidism (on calcitriol), anemia (on Procrit,)HLD, Anxiety was referred from his primary care physician( DR. Ward) for altered mental status patient went to [place] for a trip last week and while during the trip patient reports feeling progressively fatigued for the past several days and mildly short of breath with exertion but denies chest pain, orthopnea, PND, lower-extremity swelling, fever, chills, nausea, vomiting, diarrhea, abdominal pain, dysuria, or changes in urine color. stated patient has been very slow in response and confused. Does have gait imbalance. Decreased appetite for the last few days. No dizziness, or syncope. No recent contrast exposure, illness, or new medications aside from his usual antihypertensives and supplements. He takes Rayaldee//calcitriol for secondary hyperparathyroidism but no other vitamin D or calcium products. He was found to have Cr 8.5 mg/dL (from baseline 2.3), BUN 63, eGFR 6, and Ca 13.2 mg/dL. PTH is normal. UA was negative for infection. Chest X-ray showed mild vascular congestion. Head CT negative for acute hemorrhage. EKG showed atrial fibrillation without acute ischemic changes. He was sent to the ED for further evaluation and admission for EDWARD on CKD and hypercalcemia. 01/16/2025: Patient seen and evaluated at bedside. He is alert, oriented ?3, and answering all questions appropriately. Confusion resolved. Denies chest pain, SOB, nausea, vomiting, or abdominal pain. Tolerating diet and reports feeling stronger today. Today?s labs: Calcium improved to 11.7 (from 13.2), creatinine 7.7 (from 8.5), GFR stable at 6, potassium 3.5, sodium 146, chloride 108, WBC 5.6, hemoglobin 9.5. UA negative, urine tox negative, hepatitis panel negative. Iron studies: Iron 31, TIBC 206, saturation 15%, UIBC 175 ? consistent with iron deficiency pattern. Exam Vital Signs Temp Pulse Resp BP Pulse Ox O2 Del Method 97.9 F 88 14 151/92 H 95 Room Air 01/16/25 08:00 01/16/25 08:00 01/16/25 08:00 01/16/25 08:00 01/16/25 08:00 01/16/25 08:00 Narrative Exam General: Awake, oriented, comfortable, NAD HEENT: Anicteric, mucous membranes moist Neck: No JVD or lymphadenopathy Cardiac: Irregularly irregular, rate controlled, no murmurs Lungs: Clear to auscultation bilaterally Abdomen: Soft, non-tender, non-distended Extremities: No edema, pulses palpable Neuro: Alert, oriented ?3, no focal deficits Skin: Warm, dry Objective Labs 01/16/25 05:10 01/16/25 05:10 Labs: Laboratory Results - last 24 hr 01/15/25 01/15/25 01/15/25 10:18 11:56 16:44 WBC 7.4 RBC 3.65 L Hgb 10.4 L Hct 32.2 L MCV 88 MCH 28.5 MCHC 32.3 RDW Std Deviation 43.8 Plt Count 237 Neut % (Auto) 70 Lymph % (Auto) 17 [place] % (Auto) 9 Eos % (Auto) 2 Baso % (Auto) 0 Neut # (Auto) 5.2 Lymph # (Auto) 1.3 [place] # (Auto) 0.7 Eos # (Auto) 0.2 Baso # (Auto) 0.0 Immature Gran # (Auto) 0.02 H Absolute Nucleated RBC 0.00 Immature Gran % 0 Nucleated RBC % 0 PT 10.6 INR 1.0 APTT 27.0 Sodium 141 Potassium 3.5 Chloride 101 Carbon Dioxide 28.3 Anion Gap 12 BUN 63 H Creatinine 8.5 H* Estim Creat Clear Calc Not Performed. eGFR 6 L* BUN/Creatinine Ratio 7 L Glucose 107 H Calculated Osmolality 299 H Calcium 13.1 H* Corrected Calcium 13.2 H* Phosphorus Magnesium 1.8 Iron 31 L TIBC 206 L Iron Saturation 15 L Unsat Iron Binding 175 L Total Bilirubin 0.3 AST 22 ALT 11 Alkaline Phosphatase 64 Troponin I 0.023 B-Natriuretic Peptide 134 H Total Protein 6.3 Albumin 3.9 Globulin 2.4 Albumin/Globulin Ratio 1.6 Lipase 51 25-OH Vitamin D Total 56.5 H PTH Intact 42.2 Ur Collection Type Clean Catch Urine Color Lt-Yellow Urine Clarity Clear Urine pH 6.0 Ur Specific Delong 1.013 Urine Protein 1+ A Urine Glucose (UA) Negative Urine Ketones Negative Urine Blood Trace Urine Nitrite Negative Urine Bilirubin Negative Urine Urobilinogen (Auto) Negative Ur Leukocyte Esterase Negative Urine RBC 1 Urine WBC 1 Ur Squamous Epith Cells < 1 Urine Bacteria None Hyaline Casts < 1 Ur Culture Indicated? Not Indicated Urine Opiates Screen Negative Urine Fentanyl Screen Negative Ur Barbiturates Screen Negative U Amphetamin/Meth Scrn Negative U Benzodiazepines Scrn Negative U Cocaine Metab Screen Negative U Marijuana (THC) Screen Negative Ethyl Alcohol < 3.0 Hepatitis A IgM Ab Non Reactive Hep Bs Antigen Non Reactive Hep B Core IgM Ab Non Reactive Hepatitis C Antibody Non Reactive 01/16/25 05:10 WBC 5.6 RBC 3.32 L Hgb 9.5 L Hct 29.1 L MCV 88 MCH 28.6 MCHC 32.6 RDW Std Deviation 43.2 Plt Count 203 D Neut % (Auto) 64 Lymph % (Auto) 19 [place] % (Auto) 11 Eos % (Auto) 4 Baso % (Auto) 1 Neut # (Auto) 3.6 Lymph # (Auto) 1.1 [place] # (Auto) 0.6 Eos # (Auto) 0.3 Baso # (Auto) 0.0 Immature Gran # (Auto) 0.03 H Absolute Nucleated RBC 0.00 Immature Gran % 1 H Nucleated RBC % 0 PT INR APTT Sodium 146 H Potassium 3.5 Chloride 108 H Carbon Dioxide 25.7 Anion Gap 12 BUN 49 H Creatinine 7.7 H* D Estim Creat Clear Calc Not Performed. eGFR 6 L* BUN/Creatinine Ratio 6 L Glucose 86 Calculated Osmolality 302 H Calcium 11.3 H D Corrected Calcium 11.7 H D Phosphorus 4.9 Magnesium 1.5 L Iron TIBC Iron Saturation Unsat Iron Binding Total Bilirubin AST ALT Alkaline Phosphatase Troponin I B-Natriuretic Peptide Total Protein Albumin 3.5 Globulin Albumin/Globulin Ratio Lipase 25-OH Vitamin D Total PTH Intact Ur Collection Type Urine Color Urine Clarity Urine pH Ur Specific [place] Urine Protein Urine Glucose (UA) Urine Ketones Urine Blood Urine Nitrite Urine Bilirubin Urine Urobilinogen (Auto) Ur Leukocyte Esterase Urine RBC Urine WBC Ur Squamous Epith Cells Urine Bacteria Hyaline Casts Ur Culture Indicated? Urine Opiates Screen Urine Fentanyl Screen Ur Barbiturates Screen U Amphetamin/Meth Scrn U Benzodiazepines Scrn U Cocaine Metab Screen U Marijuana (THC) Screen Ethyl Alcohol Hepatitis A IgM Ab Hep Bs Antigen Hep B Core IgM Ab Hepatitis C Antibody Quality Measures Quality Measures VTE prophylaxis Advance care planning discussed with:: patient and spouse Assessment & Plan Assessment Current Active Medications: Generic Name Dose Route Start Last Admin Trade Name Cami PRN Reason Stop Dose Admin Famotidine 20 mg 01/16/25 09:00 01/16/25 09:03 Famotidine Inj 10 Mg/Ml Vial 2 Ml IVP 02/15/25 08:59 20 mg QDAY ZULEYMA Administration Heparin Sodium (Porcine) 5,000 unit 01/15/25 21:00 01/16/25 09:03 Heparin Sod Inj 5000 Unit/Ml Vial SC 01/29/25 20:59 5,000 unit Q12HR ZULEYMA Administration Sodium Chloride 1,000 mls @ 125 mls/hr 01/15/25 12:56 01/16/25 05:35 Ns IV 02/14/25 12:55 125 mls/hr .Q8H ZULEYMA Administration Plan 79-year-old male with CKD (baseline Cr 2.3) admitted for EDWARD on CKD and vitamin D?mediated hypercalcemia, now improving on IV fluids and discontinuation of vitamin D analogs. Mentation normalized, calcium and creatinine trending down, no current indication for dialysis. # Acute kidney injury on CKD Cr 8.5 --> 7.7, improving; ultrasound shows chronic scarring, no obstruction. Plan: * Continue IV NS at 125 mL/hr * Monitor renal panel daily * Hold amlodipine?benazepril combination until renal function stabilizes * Avoid nephrotoxins (NSAIDs, ACEI/ARB, IV contrast) * Encourage oral intake * Continue close monitoring for uremic symptoms * No dialysis indication at this time # Hypercalcemia secondary to vitamin D excess (Rayaldee/Calcitriol-induced) Ca improved from 13.2 --> 11.7, PTH normal, 25-OH Vit D 56. 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 Plan: * Start IV iron sucrose (Venofer 200 mg IV daily ? 5 doses) * Continue Procrit 10,000 units SQ weekly * Monitor CBC and repeat iron studies after completion # Atrial fibrillation, rate controlled HR 88, asymptomatic. Plan: * Continue telemetry * Rate monitoring only * Continue aspirin 81 mg daily; defer anticoagulation until renal function stabilizes # Hypertension BP 143/69, stable. Plan: * Hold Amlodipine?Benazepril combo for now * Continue Doxazosin 2 mg BID * Resume amlodipine component alone once renal function improves, if bp not stabilized # Hyperlipidemia Plan: Continue Atorvastatin 10 mg daily # Tobacco use disorder Plan: Continue cessation counseling, nicotine patch PRN # Deconditioning / mobility Now alert, stable, able to ambulate. Plan: * PT consult ordered for mobility and strengthening * Encourage ambulation as tolerated Health Maintenance : Diet: Renal, low sodium IVF: NS @ 125 mL/hr Thromboprophylaxis: Heparin 5,000 U SC q8h GI Prophylaxis: Famotidine 20 mg PO daily Disposition: Continue inpatient monitoring; stable for transfer to floor once further improved Code Status: Full ----- Plan discussed with attending physician Dr. Sylvia Franco MD PGY-1 Internal Medicine Attending Provider Attestation/Addendum Patient seen and examined with resident physician Dr. Franco. Note reviewed, agree with findings and recommendations. Creatinine and calcium improving. Continue with IV fluids. Blood pressure high added hydralazine
[2025-01-16] MEDS: IRON SUCROSE CPLX INJ 20 MG/ML VIAL 5 ML 200 MG IVP (11:01)
--- NOTE | 2025-01-16 14:31 | PC.SS ---
SS met with patient who is alert/oriented. Patient was able to verify demographics. Patient was admitted for hyercalcemia. Patient resides with . Patient is independent with ADL's. transports patient to appointments. Patient was dx: new atrial fib. PCP: Dr. Ward and pharmacy: [facility]. Discharge plan is to continue home. alt medical decision maker: , Nidhi,
--- NOTE | 2025-01-16 16:22 | PC.PT ---
Patient is safe to ambulate to the bathroom and in the halls with a FWW and 1 staff. RN made aware.
[2025-01-16] MEDS: DOXAZOSIN MESYLATE 2 MG TABLET PO ×2 (17:34→20:29)
[2025-01-16] MEDS: ASPIRIN 81 MG CHEW PO (17:34)
[2025-01-16] MEDS: ATORVASTATIN CALCIUM 10 MG TABLET PO (20:29)
[2025-01-17] VITALS (14 sets, daily range): BP systolic 128–168; BP diastolic 65–101; PULSE 67–107; RESP 17–19; TEMP 36.4–36.9; O2SAT 94–97
[2025-01-17 05:49] LABS: Basophils # (Auto) 0.0 Thou/mm3 (0.0-0.2); Basophils % (Auto) 0 % (0-2.5); Eosinophils # (Auto) 0.2 Thou/mm3 (0.0-0.5); Eosinophils % (Auto) 4 % (0-10); Hematocrit 27.6 % (41.0-53.0); Hemoglobin 9.0 g/dL (13.5-16.0); Immature Granulocytes Auto 0.02 Thou/mm3 (0.00-0.00); Lymphocytes # (Auto) 1.1 Thou/mm3 (1.0-4.8); Lymphocytes % (Auto) 21 % (10-50); Mean Corpuscular HGB Conc 32.6 g/dl (31.0-37.0); Mean Corpuscular Hemoglobin 28.3 pg (25.0-35.0); Mean Corpuscular Volume 87 fL (80-100); Monocytes # (Auto) 0.6 Thou/mm3 (0.0-0.8); Monocytes % (Auto) 11 % (0-12); Neutrophils # (Auto) 3.3 Thou/mm3 (1.8-7.7); Neutrophils % (Auto) 63 % (37-80); Nucleated Red Blood Cell # 0.00 Thou/mm3 (0.00-0.00); Nucleated Red Blood Cell % 0 /100 WBC (0); Platelet Count 187 Thou/mm3 (140-440); RDW Standard Deviation 42.5 fL (35.1-43.9); Red Blood Count 3.18 Miln/mm3 (4.50-5.90); White Blood Count 5.2 Thou/mm3 (3.8-10.6)
[2025-01-17 06:13] LABS: Albumin, Serum 3.5 gm/dL (3.4-4.8); Anion Gap 13 (7-16); BUN/Creatinine Ratio 8 Ratio (12-20); Blood Urea Nitrogen 52 mg/dL (9-23); Calcium 11.4 mg/dL (8.3-10.6); Calcium (Corrected) 11.8 mg/dL (8.5-10.1); Carbon Dioxide 25.0 mMol/L (20.0-31.0); Chloride 107 mMol/L (98-107); Creatinine (Component) 6.8 mg/dL (0.6-1.3); Glucose 80 mg/dL (74-106); Magnesium 1.2 mg/dL (1.6-2.6); Osmolality,Calculated 301 (275-295); Phosphorous 3.9 mg/dL (2.4-5.1); Potassium 3.2 mMol/L (3.4-5.1); Sodium 145 mMol/L (136-145); eGFR 7 See Note
[2025-01-17] MEDS: IRON SUCROSE CPLX INJ 20 MG/ML VIAL 5 ML 200 MG IVP (09:15)
[2025-01-17] MEDS: DOXAZOSIN MESYLATE 2 MG TABLET PO ×2 (09:17→21:41)
[2025-01-17] MEDS: ASPIRIN 81 MG CHEW PO (09:17)
[2025-01-17] MEDS: HEPARIN SOD INJ 5000 UNIT/ML VIAL SC (09:18)
[2025-01-17] MEDS: FAMOTIDINE INJ 10 MG/ML VIAL 2 ML 20 MG IVP (09:18)
[2025-01-17] MEDS: Magnesium Sulfate 4 GM Ivpb 4 GM/50 ML BAG IV (09:19)
--- NOTE | 2025-01-17 09:56 | ESPR_ITS ---
Documentation for date of: 01/17/25 Subjective Subjective Interval history: Mr. Sin is a 79-year-old gentleman with a past medical history significant for hypertension, PANCA vasculitis, chronic kidney disease III/IV (baseline creatinine ~2.3 since 2019), and prior TIA (2018) secondary hyperparathyroidism (on calcitriol), anemia (on Procrit,)HLD, Anxiety was referred from his primary care physician( DR. Ward) for altered mental status patient went to [place] for a trip last week and while during the trip patient reports feeling progressively fatigued for the past several days and mildly short of breath with exertion but denies chest pain, orthopnea, PND, lower-extremity swelling, fever, chills, nausea, vomiting, diarrhea, abdominal pain, dysuria, or changes in urine color. stated patient has been very slow in response and confused. Does have gait imbalance. Decreased appetite for the last few days. No dizziness, or syncope. No recent contrast exposure, illness, or new medications aside from his usual antihypertensives and supplements. He takes Rayaldee//calcitriol for secondary hyperparathyroidism but no other vitamin D or calcium products. He was found to have Cr 8.5 mg/dL (from baseline 2.3), BUN 63, eGFR 6, and Ca 13.2 mg/dL. PTH is normal. UA was negative for infection. Chest X-ray showed mild vascular congestion. Head CT negative for acute hemorrhage. EKG showed atrial fibrillation without acute ischemic changes. He was sent to the ED for further evaluation and admission for EDWARD on CKD and hypercalcemia. 01/16/2025: Patient seen and evaluated at bedside. He is alert, oriented ?3, and answering all questions appropriately. Confusion resolved. Denies chest pain, SOB, nausea, vomiting, or abdominal pain. Tolerating diet and reports feeling stronger today. Today?s labs: Calcium improved to 11.7 (from 13.2), creatinine 7.7 (from 8.5), GFR stable at 6, potassium 3.5, sodium 146, chloride 108, WBC 5.6, hemoglobin 9.5. UA negative, urine tox negative, hepatitis panel negative. Iron studies: Iron 31, TIBC 206, saturation 15%, UIBC 175 ? consistent with iron deficiency pattern. 01/17/2025: Patient seen and evaluated this morning. He is alert and oriented ?3, reports feeling fine today and denies chest pain, SOB, dizziness, nausea, or vomiting. Appetite good, tolerating oral intake. Started nightly Ativan 0.5 to help patient's sleep and his anxiety. Overnight: Had episodes of hypertension, now controlled after starting Hydralazine TID. Labs today: * WBC 5.2, Hgb 9.0, Hct 28, Platelets 187 * Na 145, K 3.2 (repleted with 40 mEq PO KCl), Cl 107, CO2 25 * Cr 6.8 from 7.7, GFR 7 from 6 * Ca 11.8 from 11.7, Phos 3.9, Mg 1.2 (repleted with 4 g IV Mg) * Urine output present but limited. Heparin held. PPD and Hepatitis panel ordered in preparation for possible dialysis. Patient made NPO after midnight for possible dialysis catheter placement tomorrow if renal function and calcium do not improve. Order placed to discontinue Smith, but catheter still in place this morning. Order placed for out of bed to chair and PT follow-up. Exam Vital Signs Temp Pulse Resp BP Pulse Ox O2 Del Method 97.5 F 82 18 128/68 96 Room Air 01/17/25 08:00 01/17/25 09:17 01/17/25 08:00 01/17/25 09:17 01/17/25 08:00 01/17/25 08:00 Narrative Exam General: Awake, oriented, comfortable, NAD HEENT: Anicteric, mucous membranes moist Neck: No JVD or lymphadenopathy Cardiac: Irregularly irregular, rate controlled, no murmurs Lungs: Clear to auscultation bilaterally Abdomen: Soft, non-tender, non-distended Extremities: No edema, pulses palpable Neuro: Alert, oriented ?3, no focal deficits Skin: Warm, dry Objective Labs 01/17/25 04:14 01/17/25 04:14 Labs: Laboratory Results - last 24 hr 01/17/25 04:14 WBC 5.2 RBC 3.18 L Hgb 9.0 L Hct 27.6 L MCV 87 MCH 28.3 MCHC 32.6 RDW Std Deviation 42.5 Plt Count 187 Neut % (Auto) 63 Lymph % (Auto) 21 [place] % (Auto) 11 Eos % (Auto) 4 Baso % (Auto) 0 Neut # (Auto) 3.3 Lymph # (Auto) 1.1 [place] # (Auto) 0.6 Eos # (Auto) 0.2 Baso # (Auto) 0.0 Immature Gran # (Auto) 0.02 H Absolute Nucleated RBC 0.00 Immature Gran % 0 Nucleated RBC % 0 Sodium 145 Potassium 3.2 L Chloride 107 Carbon Dioxide 25.0 Anion Gap 13 BUN 52 H Creatinine 6.8 H* D Estim Creat Clear Calc Not Performed. eGFR 7 L* BUN/Creatinine Ratio 8 L Glucose 80 Calculated Osmolality 301 H Calcium 11.4 H Corrected Calcium 11.8 H Phosphorus 3.9 Magnesium 1.2 L Albumin 3.5 Quality Measures Quality Measures VTE prophylaxis Advance care planning discussed with:: patient and spouse Assessment & Plan Assessment Current Active Medications: Generic Name Dose Route Start Last Admin Trade Name Freq PRN Reason Stop Dose Admin Aspirin 81 mg 01/16/25 15:05 01/17/25 09:17 Aspirin 81 Mg Chew PO 02/15/25 15:04 81 mg DAILY ZULEYMA Administration Atorvastatin Calcium 10 mg 01/16/25 21:00 01/16/25 20:29 Atorvastatin Calcium 10 Mg Tablet PO 02/15/25 20:59 10 mg HS ZULEYMA Administration Buspirone HCl 15 mg 01/17/25 09:00 01/17/25 09:17 Buspirone Hcl 5 Mg Tablet PO 02/16/25 08:59 15 mg DAILY ZULEYMA Administration Doxazosin Mesylate 2 mg 01/16/25 15:05 01/17/25 09:17 Doxazosin Mesylate 2 Mg Tablet PO 02/15/25 15:04 2 mg BID ZULEYMA Administration Epoetin Prashant 10,000 unit 01/23/25 09:00 Epoetin Prashant-Epbx Inj 10,000 Unit/Ml Vial (Non-Esrd) SC 02/22/25 08:59 QWEEK ZULEYMA Famotidine 20 mg 01/16/25 09:00 01/17/25 09:18 Famotidine Inj 10 Mg/Ml Vial 2 Ml IVP 02/15/25 08:59 20 mg QDAY ZULEYMA Administration Hydralazine HCl 50 mg 01/16/25 20:45 01/17/25 05:32 Hydralazine Hcl 25 Mg Tablet PO 02/15/25 20:44 50 mg TID ZULEYMA Administration Magnesium Sulfate 4 gm in 50 mls @ 12.5 mls/hr 01/17/25 07:45 01/17/25 09:19 Magnesium Sulfate Ivpb IV 01/17/25 11:44 12.5 mls/hr X1 ONE Administration Iron Sucrose 200 mg 01/16/25 10:15 01/17/25 09:15 Iron Sucrose Cplx Inj 20 Mg/Ml Vial 5 Ml IVP 01/20/25 10:14 200 mg QDAY ZULEYMA Administration Lorazepam 0.5 mg 01/17/25 21:00 Lorazepam 0.5 Mg Tablet PO 01/22/25 20:59 HS ZULEYMA Plan 79-year-old male with CKD (baseline Cr 2.3) admitted for EDWARD on CKD with persistent hypercalcemia. Renal function showing slow improvement (Cr 7.7 -> 6.8), but calcium remains elevated at 11.8 despite hydration and holding vitamin D analogs. Preparing for potential dialysis catheter placement tomorrow if labs fail to improve further. Mentation remains normal, BP controlled with hydralazine, electrolytes repleted. # Acute kidney injury on CKD Cr 8.5 --> 7.7, improving; ultrasound shows chronic scarring, no obstruction. Cr improving but minimal GFR gain; urine output present. Plan: * Monitor renal panel daily * Hold amlodipine?benazepril combination until renal function stabilizes * Avoid nephrotoxins (NSAIDs, ACEI/ARB, IV contrast) * Encourage oral intake * Continue close monitoring for uremic symptoms * PPD and Hep panel ordered for dialysis prep * NPO after midnight for possible dialysis catheter placement tomorrow * Hold heparin * Continue to reassess daily for dialysis indication # Hypercalcemia secondary to vitamin D excess (Rayaldee/Calcitriol-induced) Ca remains elevated at 11.8 despite fluids; PTH normal, 25-OH Vit D high. 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 Plan: * Continue IV Venofer 200 mg IV daily ? 5 doses (start 01/16-01/20) * Continue Procrit 10,000 units SQ weekly * Monitor CBC and repeat iron studies after completion # Atrial fibrillation, rate controlled HR 88, asymptomatic. Plan: * Continue telemetry * Rate monitoring only * Continue aspirin 81 mg daily; defer anticoagulation until renal function stabilizes # Hypertension Had overnight hypertension, now improved. Plan: * Continue Hydralazine 50 mg PO TID * Hold Amlodipine?Benazepril combo * Continue Doxazosin 2 mg BID * Added nicardipine 20 mg p.o. twice daily * Monitor BP closely # Anxiety / Insomnia Reports difficulty sleeping, improved with Ativan. Plan: * Continue Ativan 0.5 mg PO at bedtime PRN for sleep/anxiety * Continue Buspirone 15 mg daily # Hyperlipidemia Plan: Continue Atorvastatin 10 mg daily # Tobacco use disorder Plan: Continue cessation counseling, nicotine patch PRN # Deconditioning / mobility Now alert, stable, able to ambulate. Plan: * PT consult ordered for mobility and strengthening * Encourage ambulation as tolerated * Encourage out of bed to chair Health Maintenance : Diet: Renal, low sodium; n.p.o. after midnight Thromboprophylaxis: SCD GI Prophylaxis: Famotidine 20 mg PO daily Disposition: Continue inpatient monitoring; reassess renal function and calcium tomorrow Code Status: Full ----- Plan discussed with attending physician Dr. Sylvia Franco MD PGY-1 Internal Medicine Attending Provider Attestation/Addendum Patient seen and examined with resident physician Dr. Franco. Note reviewed, agree with findings and recommendations. Patient's creatinine still remains elevated although tad better. GFR 7%. If no improvement in azotemia-Will plan for dialysis tomorrow. Suspect patient in ATN superimposed on CKD stage IV. and patient had several questions which were answered to their satisfaction.
--- NOTE | 2025-01-17 10:01 | PC.NURSE ---
consulted with Dr. Ward to verify if dialysis catheter is temporary or tunneled, Dr. Ward stated tunneled dialysis catheter is needed, procedure will be scheduled for tomorrow, not today.
--- NOTE | 2025-01-17 18:00 | PC.NURSE ---
Notified md marr of pts current bp of 171/97-67 HR per MD continue with nicardipine po 20mg bid to start tonight.
[2025-01-17] MEDS: ATORVASTATIN CALCIUM 10 MG TABLET PO (21:40)
[2025-01-17] MEDS: niCARdipine 20 MG CAPSULE PO (21:40)
[2025-01-18] VITALS (29 sets, daily range): BP systolic 109–171; BP diastolic 47–96; PULSE 64–107; RESP 16–20; TEMP 36.3–37.2; O2SAT 92–98; BMI 26.6
--- NOTE | 2025-01-18 | XR_ITS ---
Ultrasound-guided needle placement right internal jugular vein Permanent tunneled dialysis catheter insertion, percutaneous Fluoroscopy AP chest, portable, single view. Date and time of procedure: January 18, 2025, 1317 hours INDICATIONS: Renal failure this week, need for stat residential dialysis with a permanent tunneled dialysis catheter Informed consent provided Technique: A timeout was completed verifying correct patient, procedure, site, positioning, and special equipment if applicable. The patient was placed in a dependent position appropriate for dialysis catheter placement based on the vein to be cannulated. The patient's right neck was prepped and draped in sterile fashion. Maximum Sterile Barrier Technique used including cap, mask, sterile gown, sterile gloves, and sterile full body drape. If ultrasound technique used: sterile gel and sterile probe covers. Hand Hygiene performed using proper scrub, soap and water, or alcohol-based hand rub. 1% lidocaine was used to anesthetize the surrounding skin area The [employer] portable ultrasound apparatus utilized to confirm patency of the right internal jugular vein Utilizing ultrasonographic guidance successful 21-gauge needle puncture into the right internal jugular vein Ultrasound images were recorded and stored. Vessel micropuncture was performed with 21-gauge needle. 0.18 wire guide is introduced into the vein. 0.18 wire is introduced into the vena cava under fluoroscopy. Subcutaneous tunnel formed in the upper chest. Permanent tunneled dialysis catheter placed in the subcutaneous tunnel. Dilators were introduced over the J-wire guide. Tunneled dialysis catheter is introduced through a dilator with venous sheath into the superior vena cava under fluoroscopic guidance. The catheter is sutured in place to the skin and a sterile dressing applied. Perfusion to the extremity distal to the point of catheter insertion is checked and found to be adequate Attending radiologist was present for the entire procedure Estimated blood loss 2 cc. The patient tolerated the procedure well and there were no complications Impression: Successful ultrasound-guided needle placement right internal jugular vein Successful permanent tunneled dialysis catheter insertion, percutaneous Fluoroscopy 0.2-minute radiation dose 1.00 mGy 1 spot fluoroscopic chest film AP chest performed at completion procedure demonstrates satisfactory position dialysis catheter. May use dialysis catheter.
[2025-01-18 05:49] LABS: Basophils # (Auto) 0.0 Thou/mm3 (0.0-0.2); Basophils % (Auto) 0 % (0-2.5); Eosinophils # (Auto) 0.2 Thou/mm3 (0.0-0.5); Eosinophils % (Auto) 3 % (0-10); Hematocrit 28.9 % (41.0-53.0); Hemoglobin 9.3 g/dL (13.5-16.0); Immature Granulocytes Auto 0.03 Thou/mm3 (0.00-0.00); Lymphocytes # (Auto) 1.1 Thou/mm3 (1.0-4.8); Lymphocytes % (Auto) 18 % (10-50); Mean Corpuscular HGB Conc 32.2 g/dl (31.0-37.0); Mean Corpuscular Hemoglobin 27.8 pg (25.0-35.0); Mean Corpuscular Volume 87 fL (80-100); Monocytes # (Auto) 0.8 Thou/mm3 (0.0-0.8); Monocytes % (Auto) 13 % (0-12); Neutrophils # (Auto) 4.1 Thou/mm3 (1.8-7.7); Neutrophils % (Auto) 66 % (37-80); Nucleated Red Blood Cell # 0.00 Thou/mm3 (0.00-0.00); Nucleated Red Blood Cell % 0 /100 WBC (0); Platelet Count 208 Thou/mm3 (140-440); RDW Standard Deviation 43.8 fL (35.1-43.9); Red Blood Count 3.34 Miln/mm3 (4.50-5.90); White Blood Count 6.3 Thou/mm3 (3.8-10.6)
[2025-01-18 06:05] LABS: INR 1.0 (0.9-1.3); Prothrombin Time 10.7 Seconds (9.0-12.2)
[2025-01-18 06:10] LABS: Albumin, Serum 3.7 gm/dL (3.4-4.8); Anion Gap 11 (7-16); BUN/Creatinine Ratio 6 Ratio (12-20); Blood Urea Nitrogen 42 mg/dL (9-23); Calcium 11.5 mg/dL (8.3-10.6); Calcium (Corrected) 11.7 mg/dL (8.5-10.1); Carbon Dioxide 25.2 mMol/L (20.0-31.0); Chloride 106 mMol/L (98-107); Creatinine (Component) 7.2 mg/dL (0.6-1.3); Glucose 94 mg/dL (74-106); Magnesium 1.6 mg/dL (1.6-2.6); Osmolality,Calculated 293 (275-295); Phosphorous 3.0 mg/dL (2.4-5.1); Potassium 3.5 mMol/L (3.4-5.1); Sodium 142 mMol/L (136-145); eGFR 7 See Note
[2025-01-18] MEDS: niCARdipine 20 MG CAPSULE PO ×2 (08:44→21:17)
[2025-01-18] MEDS: DOXAZOSIN MESYLATE 2 MG TABLET PO ×2 (08:45→21:18)
[2025-01-18] MEDS: FAMOTIDINE INJ 10 MG/ML VIAL 2 ML 20 MG IVP (08:46)
[2025-01-18] MEDS: IRON SUCROSE CPLX INJ 20 MG/ML VIAL 5 ML 200 MG IVP (08:46)
--- NOTE | 2025-01-18 10:51 | PC.SS ---
Addendum entered by Jennifer Russ 01/18/25 11:04: SS follow up note; Patient is pending TB test and results. SS contacted [facility] in [place] and spoke to Catherine, she informed SS she would get patient in the system and will submit for auth. Pending dialysis sessions and TB results. SS will stand by for further needs. Original Note: Update: SS was informed by patient's nurse, Jesus Manuel that patient will be needing dialysis and is pending Dialysis port today. Patient will discharge home when medically cleared.
[2025-01-18] MEDS: TUBERCULIN PPD INJ 5 UNIT/0.1 ML DOSE ID (12:01)
--- NOTE | 2025-01-18 13:12 | PC.NURSE ---
consulted dr martinez regarding perm cath insertion, patient took aspirin yesterday, ok to proceed with scheduled procedure
[2025-01-18] MEDS: fentaNYL CIT INJ 50 mCg/ML AMP 2ML 75 MCG IVP (13:46)
[2025-01-18] MEDS: LIDOCAINE INJ PF 1% 30 ML VIAL 7 ML INFL (13:47)
[2025-01-18] MEDS: HEPARIN SOD LOCK SYR 100 UNIT/ML 500 UNIT STFIELD (13:47)
[2025-01-18] MEDS: HEPARIN SOD INJ 1000 UNIT/ML VIAL 3500 UNIT INDWELLCAT (14:10)
--- NOTE | 2025-01-18 14:12 | PC.NURSE ---
1412 patient is awake, alert, breathing unlabored, s/p perm cath insertion to right IJ, report given to Sonny RN, patient transferred back to room 380 with tele box. May use dialysis catheter per dr. martinez.
--- NOTE | 2025-01-18 14:26 | PC.NURSE ---
pt back from [facility]. no sings of distress noted. pt alert and oriented gcs 15
--- NOTE | 2025-01-18 15:14 | ESPR_ITS ---
Documentation for date of: 01/18/25 Subjective Subjective Interval history: Mr. Sin is a 79-year-old gentleman with a past medical history significant for hypertension, PANCA vasculitis, chronic kidney disease III/IV (baseline creatinine ~2.3 since 2019), and prior TIA (2018) secondary hyperparathyroidism (on calcitriol), anemia (on Procrit,)HLD, Anxiety was referred from his primary care physician( DR. Ward) for altered mental status patient went to [place] for a trip last week and while during the trip patient reports feeling progressively fatigued for the past several days and mildly short of breath with exertion but denies chest pain, orthopnea, PND, lower-extremity swelling, fever, chills, nausea, vomiting, diarrhea, abdominal pain, dysuria, or changes in urine color. stated patient has been very slow in response and confused. Does have gait imbalance. Decreased appetite for the last few days. No dizziness, or syncope. No recent contrast exposure, illness, or new medications aside from his usual antihypertensives and supplements. He takes Rayaldee//calcitriol for secondary hyperparathyroidism but no other vitamin D or calcium products. He was found to have Cr 8.5 mg/dL (from baseline 2.3), BUN 63, eGFR 6, and Ca 13.2 mg/dL. PTH is normal. UA was negative for infection. Chest X-ray showed mild vascular congestion. Head CT negative for acute hemorrhage. EKG showed atrial fibrillation without acute ischemic changes. He was sent to the ED for further evaluation and admission for EDWARD on CKD and hypercalcemia. 01/16/2025: Patient seen and evaluated at bedside. He is alert, oriented ?3, and answering all questions appropriately. Confusion resolved. Denies chest pain, SOB, nausea, vomiting, or abdominal pain. Tolerating diet and reports feeling stronger today. Today?s labs: Calcium improved to 11.7 (from 13.2), creatinine 7.7 (from 8.5), GFR stable at 6, potassium 3.5, sodium 146, chloride 108, WBC 5.6, hemoglobin 9.5. UA negative, urine tox negative, hepatitis panel negative. Iron studies: Iron 31, TIBC 206, saturation 15%, UIBC 175 ? consistent with iron deficiency pattern. 01/17/2025: Patient seen and evaluated this morning. He is alert and oriented ?3, reports feeling fine today and denies chest pain, SOB, dizziness, nausea, or vomiting. Appetite good, tolerating oral intake. Started nightly Ativan 0.5 to help patient's sleep and his anxiety. Overnight: Had episodes of hypertension, now controlled after starting Hydralazine TID. Labs today: * WBC 5.2, Hgb 9.0, Hct 28, Platelets 187 * Na 145, K 3.2 (repleted with 40 mEq PO KCl), Cl 107, CO2 25 * Cr 6.8 from 7.7, GFR 7 from 6 * Ca 11.8 from 11.7, Phos 3.9, Mg 1.2 (repleted with 4 g IV Mg) * Urine output present but limited. Heparin held. PPD and Hepatitis panel ordered in preparation for possible dialysis. Patient made NPO after midnight for possible dialysis catheter placement tomorrow if renal function and calcium do not improve. Order placed to discontinue Smith, but catheter still in place this morning. Order placed for out of bed to chair and PT follow-up. 01/18/2025: Patient seen and evaluated this morning while resting in bed. He was sleeping comfortably but awoke to voice and responded appropriately. He states he feels fine and denies any pain, shortness of breath, nausea, or dizziness. at bedside reports that after receiving Ativan last night, he slept through most of the night and seemed much calmer. Overnight: He experienced bouts of hypertension, so Nicardipine 20 mg PO BID was started in addition to Hydralazine TID, with improved blood pressure control this morning. Labs: WBC 6.3, Hgb 9.3, Hct 28.9, Platelets 208, Na 142, K 3.5, Cl 106, CO2 25, BUN 42, Cr 7.2 (from 6.8 yesterday), GFR 7 (unchanged), Glucose 94, Ca 11.7 (stable), Mg 1.6 (replete with 2g iv) , Phos 3.0 Patient and were informed about his persistent renal failure and hypercalcemia despite conservative management and the need for dialysis. They understood and agreed to proceed. Dialysis catheter placed today, and patient will receive dialysis later today. Exam Vital Signs Temp Pulse Resp BP Pulse Ox O2 Del Method O2 Flow Rate 97.5 F 73 18 171/72 H 95 Nasal Cannula 2 01/18/25 15:10 01/18/25 15:10 01/18/25 15:10 01/18/25 15:10 01/18/25 15:10 01/18/25 14:00 01/18/25 14:00 Narrative Exam General: Awake, oriented, comfortable, NAD HEENT: Anicteric, mucous membranes moist Neck: No JVD or lymphadenopathy Cardiac: Irregularly irregular, rate controlled, no murmurs Lungs: Clear to auscultation bilaterally Abdomen: Soft, non-tender, non-distended Extremities: No edema, pulses palpable Neuro: Alert, oriented ?3, no focal deficits Skin: Warm, dry Objective Labs 01/19/25 05:08 01/19/25 17:51 Labs: Laboratory Results - last 24 hr 01/18/25 04:20 WBC 6.3 RBC 3.34 L Hgb 9.3 L Hct 28.9 L MCV 87 MCH 27.8 MCHC 32.2 RDW Std Deviation 43.8 Plt Count 208 Neut % (Auto) 66 Lymph % (Auto) 18 [place] % (Auto) 13 H Eos % (Auto) 3 Baso % (Auto) 0 Neut # (Auto) 4.1 Lymph # (Auto) 1.1 [place] # (Auto) 0.8 Eos # (Auto) 0.2 Baso # (Auto) 0.0 Immature Gran # (Auto) 0.03 H Absolute Nucleated RBC 0.00 Immature Gran % 1 H Nucleated RBC % 0 PT 10.7 INR 1.0 Sodium 142 Potassium 3.5 Chloride 106 Carbon Dioxide 25.2 Anion Gap 11 BUN 42 H Creatinine 7.2 H* Estim Creat Clear Calc Not Performed. eGFR 7 L* BUN/Creatinine Ratio 6 L Glucose 94 Calculated Osmolality 293 Calcium 11.5 H Corrected Calcium 11.7 H Phosphorus 3.0 Magnesium 1.6 Albumin 3.7 Quality Measures Quality Measures VTE prophylaxis Advance care planning discussed with:: patient and spouse Assessment & Plan Assessment Current Active Medications: Generic Name Dose Route Start Last Admin Trade Name Freq PRN Reason Stop Dose Admin Aspirin 81 mg 01/16/25 15:05 01/17/25 09:17 Aspirin 81 Mg Chew PO 02/15/25 15:04 81 mg On Hold: 01/18/25 05:42 DAILY ZULEYMA Administration Atorvastatin Calcium 10 mg 01/16/25 21:00 01/17/25 21:40 Atorvastatin Calcium 10 Mg Tablet PO 02/15/25 20:59 10 mg HS ZULEYMA Administration Buspirone HCl 15 mg 01/17/25 09:00 01/18/25 08:45 Buspirone Hcl 5 Mg Tablet PO 02/16/25 08:59 15 mg DAILY ZULEYMA Administration Doxazosin Mesylate 2 mg 01/16/25 15:05 01/18/25 08:45 Doxazosin Mesylate 2 Mg Tablet PO 02/15/25 15:04 2 mg BID ZULEYMA Administration Epoetin Prashant 10,000 unit 01/23/25 09:00 Epoetin Prashant-Epbx Inj 10,000 Unit/Ml Vial (Non-Esrd) SC 02/22/25 08:59 QWEEK ZULEYMA Famotidine 20 mg 01/16/25 09:00 01/18/25 08:46 Famotidine Inj 10 Mg/Ml Vial 2 Ml IVP 02/15/25 08:59 20 mg QDAY ZULEYMA Administration Hydralazine HCl 50 mg 01/16/25 20:45 01/18/25 14:24 Hydralazine Hcl 25 Mg Tablet PO 02/15/25 20:44 50 mg TID ZULEYMA Administration Iron Sucrose 200 mg 01/16/25 10:15 01/18/25 08:46 Iron Sucrose Cplx Inj 20 Mg/Ml Vial 5 Ml IVP 01/20/25 10:14 200 mg QDAY ZULEYMA Administration Lorazepam 0.5 mg 01/17/25 21:00 01/17/25 21:40 Lorazepam 0.5 Mg Tablet PO 01/22/25 20:59 0.5 mg HS ZULEYMA Administration Nicardipine HCl 20 mg 01/17/25 21:00 01/18/25 08:44 Nicardipine 20 Mg Capsule PO 02/16/25 20:59 20 mg BID ZULEYMA Administration Plan 79-year-old male with CKD stage IV (baseline Cr 2.3) and suspected ATN superimposed on CKD, presenting with EDWARD, hypercalcemia, and now requiring dialysis initiation. Despite fluids, renal function plateaued (Cr 7.2, GFR 7) and calcium remains mildly elevated at 11.7. Hemodialysis planned for today. BP controlled with Hydralazine and Nicardipine. # Acute tubular necrosis superimposed on CKD Worsening renal function despite correction of hypercalcemia and hydration. Pattern consistent with acute tubular necrosis secondary to ischemic or toxic insult on chronic parenchymal disease. Underlying vasculitic kidney disease, hypercalcemia-induced vasoconstriction, and prolonged renal hypoperfusion leading to tubular injury. Ultrasound shows chronic scarring without obstruction, consistent with intrinsic renal injury. Labs show gradual rise in creatinine and persistent low GFR despite stable hemodynamics and fluid optimization. Plan: * Dialysis catheter placed today -> initiate hemodialysis per nephrology * Hold Amlodipine?Benazepril * Strict I&O, daily BMP and calcium * Monitor urine output and fluid balance closely * Continue to assess for renal recovery post-dialysis # Hypercalcemia secondary to vitamin D excess (Rayaldee/Calcitriol-induced) Ca remains elevated at 11.7 despite fluids; PTH normal, 25-OH Vit D high. 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 Plan: * Continue IV Venofer 200 mg IV daily ? 5 doses (start 01/16-01/20) * Continue Procrit 10,000 units SQ weekly * Monitor CBC and repeat iron studies after completion # Hypertension Had overnight hypertension, now improved. Plan: * Continue Hydralazine 50 mg PO TID * Continue Nicardipine 20 mg PO BID * Hold Amlodipine?Benazepril combo * Continue Doxazosin 2 mg BID * Added nicardipine 20 mg p.o. twice daily * Monitor BP closely # Atrial fibrillation, rate controlled HR 90, asymptomatic. Plan: * Continue telemetry * Rate monitoring only * Continue aspirin 81 mg daily; defer anticoagulation until renal function stabilizes # Anxiety / Insomnia Improved with Ativan. Plan: * Continue Ativan 0.5 mg PO at bedtime PRN for sleep/anxiety * Continue Buspirone 15 mg daily # Hyperlipidemia Plan: Continue Atorvastatin 10 mg daily # Tobacco use disorder Plan: Continue cessation counseling, nicotine patch PRN # Deconditioning / mobility Now alert, stable, able to ambulate. Plan: * PT consult ordered for mobility and strengthening * Encourage ambulation as tolerated * Encourage out of bed to chair Health Maintenance : Diet: Renal, low sodium Thromboprophylaxis: SCD GI Prophylaxis: Famotidine 20 mg PO daily Disposition: Continue inpatient monitoring; reassess renal function and calcium tomorrow Code Status: Full ----- Plan discussed with attending physician Dr. Sylvia Franco MD PGY-1 Internal Medicine Attending Provider Attestation/Addendum Patient seen and examined with resident physician Dr. Franco. Note reviewed, agree with findings and recommendations. Patient admitted with EDWARD Patient currently seen on dialysis. Tolerating dialysis without any problems. Hemodialysis for 2 hours, 2K, ultrafiltration 1L, Epogen 6000, no heparin ordered. Plan of care discussed with the dialysis nurse. Please see dialysis flowsheet for further details.
[2025-01-18] MEDS: EPOETIN ALFA-EPBX INJ 10,000 UNIT/ML VIAL (NON-ESRD) 10000 UNIT SC (15:34)
[2025-01-18] MEDS: HEPARIN SOD INJ 1000 UNIT/ML VIAL 10 ML 3500 UNIT INDWELLCAT (17:06)
--- NOTE | 2025-01-18 17:45 | PC.NURSE ---
pt back from dialysis no signs of distress noted
[2025-01-18] MEDS: Magnesium Sulfate 2 GM Ivpb 2 GM/50 ML BAG IV (18:04)
[2025-01-18] MEDS: ATORVASTATIN CALCIUM 10 MG TABLET PO (21:18)
[2025-01-19] VITALS (25 sets, daily range): BP systolic 93–171; BP diastolic 55–93; PULSE 51–123; RESP 16–19; TEMP 36.2–37.1; O2SAT 92–96
[2025-01-19 05:39] LABS: Basophils # (Auto) 0.0 Thou/mm3 (0.0-0.2); Basophils % (Auto) 0 % (0-2.5); Eosinophils # (Auto) 0.1 Thou/mm3 (0.0-0.5); Eosinophils % (Auto) 2 % (0-10); Hematocrit 29.3 % (41.0-53.0); Hemoglobin 9.5 g/dL (13.5-16.0); Immature Granulocytes Auto 0.06 Thou/mm3 (0.00-0.00); Lymphocytes # (Auto) 1.1 Thou/mm3 (1.0-4.8); Lymphocytes % (Auto) 18 % (10-50); Mean Corpuscular HGB Conc 32.4 g/dl (31.0-37.0); Mean Corpuscular Hemoglobin 28.2 pg (25.0-35.0); Mean Corpuscular Volume 87 fL (80-100); Monocytes # (Auto) 0.8 Thou/mm3 (0.0-0.8); Monocytes % (Auto) 13 % (0-12); Neutrophils # (Auto) 3.9 Thou/mm3 (1.8-7.7); Neutrophils % (Auto) 66 % (37-80); Nucleated Red Blood Cell # 0.00 Thou/mm3 (0.00-0.00); Nucleated Red Blood Cell % 0 /100 WBC (0); Platelet Count 172 Thou/mm3 (140-440); RDW Standard Deviation 45.1 fL (35.1-43.9); Red Blood Count 3.37 Miln/mm3 (4.50-5.90); White Blood Count 5.9 Thou/mm3 (3.8-10.6)
[2025-01-19 06:05] LABS: Albumin, Serum 3.4 gm/dL (3.4-4.8); Anion Gap 11 (7-16); BUN/Creatinine Ratio 7 Ratio (12-20); Blood Urea Nitrogen 40 mg/dL (9-23); Calcium 10.1 mg/dL (8.3-10.6); Calcium (Corrected) 10.6 mg/dL (8.5-10.1); Carbon Dioxide 26.9 mMol/L (20.0-31.0); Chloride 105 mMol/L (98-107); Creatinine (Component) 5.7 mg/dL (0.6-1.3); Estimated Creatinine Clearance 10.8 mL/min (>60); Glucose 103 mg/dL (74-106); Magnesium 2.2 mg/dL (1.6-2.6); Osmolality,Calculated 294 (275-295); Phosphorous 3.1 mg/dL (2.4-5.1); Potassium 3.4 mMol/L (3.4-5.1); Sodium 143 mMol/L (136-145); eGFR 9 See Note
--- NOTE | 2025-01-19 11:09 | PC.SS ---
SS follow up note; Patient is pending TB results.
[2025-01-19] MEDS: HEPARIN SOD INJ 1000 UNIT/ML VIAL 10 ML 3500 UNIT INDWELLCAT (11:13)
--- NOTE | 2025-01-19 11:35 | PC.NURSE ---
pt back from dialysis at bedside no signs of distressnoted.pt alert and oreiented [id number]
--- NOTE | 2025-01-19 12:14 | ESPR_ITS ---
Documentation for date of: 01/19/25 Subjective Subjective Interval history: Mr. Sin is a 79-year-old gentleman with a past medical history significant for hypertension, PANCA vasculitis, chronic kidney disease III/IV (baseline creatinine ~2.3 since 2019), and prior TIA (2018) secondary hyperparathyroidism (on calcitriol), anemia (on Procrit,)HLD, Anxiety was referred from his primary care physician( DR. Ward) for altered mental status patient went to [place] for a trip last week and while during the trip patient reports feeling progressively fatigued for the past several days and mildly short of breath with exertion but denies chest pain, orthopnea, PND, lower-extremity swelling, fever, chills, nausea, vomiting, diarrhea, abdominal pain, dysuria, or changes in urine color. stated patient has been very slow in response and confused. Does have gait imbalance. Decreased appetite for the last few days. No dizziness, or syncope. No recent contrast exposure, illness, or new medications aside from his usual antihypertensives and supplements. He takes Rayaldee//calcitriol for secondary hyperparathyroidism but no other vitamin D or calcium products. He was found to have Cr 8.5 mg/dL (from baseline 2.3), BUN 63, eGFR 6, and Ca 13.2 mg/dL. PTH is normal. UA was negative for infection. Chest X-ray showed mild vascular congestion. Head CT negative for acute hemorrhage. EKG showed atrial fibrillation without acute ischemic changes. He was sent to the ED for further evaluation and admission for EDWARD on CKD and hypercalcemia. 01/16/2025: Patient seen and evaluated at bedside. He is alert, oriented ?3, and answering all questions appropriately. Confusion resolved. Denies chest pain, SOB, nausea, vomiting, or abdominal pain. Tolerating diet and reports feeling stronger today. Today?s labs: Calcium improved to 11.7 (from 13.2), creatinine 7.7 (from 8.5), GFR stable at 6, potassium 3.5, sodium 146, chloride 108, WBC 5.6, hemoglobin 9.5. UA negative, urine tox negative, hepatitis panel negative. Iron studies: Iron 31, TIBC 206, saturation 15%, UIBC 175 ? consistent with iron deficiency pattern. 01/17/2025: Patient seen and evaluated this morning. He is alert and oriented ?3, reports feeling fine today and denies chest pain, SOB, dizziness, nausea, or vomiting. Appetite good, tolerating oral intake. Started nightly Ativan 0.5 to help patient's sleep and his anxiety. Overnight: Had episodes of hypertension, now controlled after starting Hydralazine TID. Labs today: * WBC 5.2, Hgb 9.0, Hct 28, Platelets 187 * Na 145, K 3.2 (repleted with 40 mEq PO KCl), Cl 107, CO2 25 * Cr 6.8 from 7.7, GFR 7 from 6 * Ca 11.8 from 11.7, Phos 3.9, Mg 1.2 (repleted with 4 g IV Mg) * Urine output present but limited. Heparin held. PPD and Hepatitis panel ordered in preparation for possible dialysis. Patient made NPO after midnight for possible dialysis catheter placement tomorrow if renal function and calcium do not improve. Order placed to discontinue Smith, but catheter still in place this morning. Order placed for out of bed to chair and PT follow-up. 01/18/2025: Patient seen and evaluated this morning while resting in bed. He was sleeping comfortably but awoke to voice and responded appropriately. He states he feels fine and denies any pain, shortness of breath, nausea, or dizziness. at bedside reports that after receiving Ativan last night, he slept through most of the night and seemed much calmer. Overnight: He experienced bouts of hypertension, so Nicardipine 20 mg PO BID was started in addition to Hydralazine TID, with improved blood pressure control this morning. Labs: WBC 6.3, Hgb 9.3, Hct 28.9, Platelets 208, Na 142, K 3.5, Cl 106, CO2 25, BUN 42, Cr 7.2 (from 6.8 yesterday), GFR 7 (unchanged), Glucose 94, Ca 11.7 (stable), Mg 1.6 (replete with 2g iv) , Phos 3.0 Patient and were informed about his persistent renal failure and hypercalcemia despite conservative management and the need for dialysis. They understood and agreed to proceed. Dialysis catheter placed today, and patient will receive dialysis later today. 01/19/2025: Patient seen and evaluated this morning during dialysis. He was awake, cooperative, and stated he is doing fine overall. However, he appeared slightly more drowsy and off compared to prior days, likely related to Ativan. Plan to reduce Ativan from 0.5 mg -> 0.25 mg nightly. Overnight: Blood pressure was noted to be on the softer side with morning BP 93/69 and pulse 86. In response, Hydralazine dose reduced from 50 mg -> 25 mg TID. Will continue to monitor closely and if BP remains soft, will discontinue Hydralazine and continue with Nicardipine and Doxazosin only. Labs: WBC 5.9, Hgb 9.5, Hct 29, Platelets 172, Na 143, K 3.4 (repleted with 40 mEq PO KCl), Cl 105, CO2 27, BUN 40, Cr 5.7 (from 7.2 yesterday), GFR improving, Ca 10.6, Mg 2.2, Phos 3.1. Patient tolerated dialysis well without complications. Reports no chest pain, shortness of breath, or dizziness. Appetite stable. Exam Vital Signs Temp Pulse Resp BP Pulse Ox O2 Del Method O2 Flow Rate 97.5 F 89 16 140/84 H 94 L Nasal Cannula 2 01/19/25 11:19 01/19/25 11:58 01/19/25 11:19 01/19/25 11:19 01/19/25 11:19 01/19/25 08:10 01/18/25 14:00 Narrative Exam General: Awake, mildly drowsy but oriented ?3, no acute distress HEENT: Anicteric, mucous membranes moist Neck: No JVD, dialysis catheter intact and clean Cardiac: Irregularly irregular rhythm, rate controlled, no murmurs Lungs: Clear to auscultation bilaterally Abdomen: Soft, non-tender, no distention Extremities: No edema, pulses palpable Neuro: Alert, follows commands, mildly slowed responses Skin: Warm, dry, no rash Objective Labs 01/19/25 05:08 01/19/25 17:51 Labs: Laboratory Results - last 24 hr 01/19/25 05:08 WBC 5.9 RBC 3.37 L Hgb 9.5 L Hct 29.3 L MCV 87 MCH 28.2 MCHC 32.4 RDW Std Deviation 45.1 H Plt Count 172 D Neut % (Auto) 66 Lymph % (Auto) 18 [place] % (Auto) 13 H Eos % (Auto) 2 Baso % (Auto) 0 Neut # (Auto) 3.9 Lymph # (Auto) 1.1 [place] # (Auto) 0.8 Eos # (Auto) 0.1 Baso # (Auto) 0.0 Immature Gran # (Auto) 0.06 H Absolute Nucleated RBC 0.00 Immature Gran % 1 H Nucleated RBC % 0 Sodium 143 Potassium 3.4 Chloride 105 Carbon Dioxide 26.9 Anion Gap 11 BUN 40 H Creatinine 5.7 H* D Estim Creat Clear Calc 10.8 L eGFR 9 L* BUN/Creatinine Ratio 7 L Glucose 103 Calculated Osmolality 294 Calcium 10.1 Corrected Calcium 10.6 H Phosphorus 3.1 Magnesium 2.2 Albumin 3.4 Quality Measures Quality Measures VTE prophylaxis Advance care planning discussed with:: patient Assessment & Plan Assessment Current Active Medications: Generic Name Dose Route Start Last Admin Trade Name Freq PRN Reason Stop Dose Admin Aspirin 81 mg 01/16/25 15:05 01/17/25 09:17 Aspirin 81 Mg Chew PO 02/15/25 15:04 81 mg On Hold: 01/18/25 05:42 DAILY ZULEYMA Administration Atorvastatin Calcium 10 mg 01/16/25 21:00 01/18/25 21:18 Atorvastatin Calcium 10 Mg Tablet PO 02/15/25 20:59 10 mg HS ZULEYMA Administration Buspirone HCl 15 mg 01/17/25 09:00 01/19/25 08:24 Buspirone Hcl 5 Mg Tablet PO 02/16/25 08:59 15 mg DAILY ZULEYMA Administration Doxazosin Mesylate 2 mg 01/16/25 15:05 01/19/25 08:26 Doxazosin Mesylate 2 Mg Tablet PO 02/15/25 15:04 Not Given BID ZULEYMA Epoetin Prashant 10,000 unit 01/23/25 09:00 Epoetin Prashant-Epbx Inj 10,000 Unit/Ml Vial (Non-Esrd) SC 02/22/25 08:59 QWEEK ZULEYMA Famotidine 20 mg 01/16/25 09:00 01/19/25 08:28 Famotidine Inj 10 Mg/Ml Vial 2 Ml IVP 02/15/25 08:59 Not Given QDAY ZULEYMA Heparin Sodium (Porcine) 3,500 unit 01/18/25 17:05 01/19/25 11:13 Heparin Sod Inj 1000 Unit/Ml Vial 10 Ml INDWELLCAT 02/01/25 17:04 3,500 unit X1 PRN Administration DIALYSIS Hydralazine HCl 25 mg 01/19/25 14:00 Hydralazine Hcl 25 Mg Tablet PO 02/18/25 13:59 TID ZULEYMA Iron Sucrose 200 mg 01/16/25 10:15 01/19/25 08:29 Iron Sucrose Cplx Inj 20 Mg/Ml Vial 5 Ml IVP 01/20/25 10:14 Not Given QDAY ZULEYMA Lorazepam 0.5 mg 01/17/25 21:00 01/18/25 22:00 Lorazepam 0.5 Mg Tablet PO 01/22/25 20:59 0.5 mg HS ZULEYMA Administration Nicardipine HCl 20 mg 01/17/25 21:00 01/19/25 08:26 Nicardipine 20 Mg Capsule PO 02/16/25 20:59 Not Given BID ZULEYMA Plan 79-year-old male with ATN superimposed on CKD stage IV and prior vitamin D?mediated hypercalcemia, currently undergoing dialysis. Renal function improving (Cr 7.2 -> 5.7), calcium trending down (11.7 -> 10.6). BP softer today, requiring medication adjustment. Mentation slightly slowed, likely related to Ativan, dose decreased. # Acute tubular necrosis superimposed on CKD Worsening renal function despite correction of hypercalcemia and hydration. Pattern consistent with acute tubular necrosis secondary to ischemic or toxic insult on chronic parenchymal disease. Underlying vasculitic kidney disease, hypercalcemia-induced vasoconstriction, and prolonged renal hypoperfusion leading to tubular injury. Ultrasound shows chronic scarring without obstruction, consistent with intrinsic renal injury. Labs show improved creatinine and persistent low GFR despite stable hemodynamics and fluid optimization. Plan: * Dialysis catheter placed * Continue hemodialysis protocol per nephrology * Hold Amlodipine?Benazepril * Strict I&O, daily BMP and calcium * Monitor urine output and fluid balance closely * Continue to assess for renal recovery post-dialysis # Hypercalcemia secondary to vitamin D excess (Rayaldee/Calcitriol-induced) Ca improving from 13.2 -> 10.6.; PTH normal, 25-OH Vit D high. Plan: * Hold Rayaldee and Calcitriol * Trend calcium and BMP daily * If Ca >12 or symptomatic will consider calcitonin or bisphosphonate #Anemia of CKD with iron deficiency pattern Iron 31, TIBC 206, sat 15%. Plan: * Continue IV Venofer 200 mg IV daily ? 5 doses (start 01/16-01/20) * Continue Procrit 10,000 units SQ weekly * Monitor CBC and repeat iron studies after completion # Hypertension BP soft this morning at 93/69, improved since reduction in meds. Plan: * Reduce Hydralazine to 25 mg PO TID (was 50 mg) * Continue Nicardipine 20 mg PO BID and Doxazosin 2 mg BID * If BP remains soft, discontinue Hydralazine and maintain current regimen * Continue close BP monitoring # Atrial fibrillation, rate controlled HR 86, asymptomatic. Plan: * Continue telemetry * Rate monitoring only * Continue aspirin 81 mg daily; defer anticoagulation until renal function stabilizes # Anxiety / Insomnia Appears mildly sedated; good sleep overnight. Plan: * Reduce Ativan to 0.25 mg PO at bedtime PRN * Continue Buspirone 15 mg daily * Monitor for somnolence or further sedation # Hyperlipidemia Plan: Continue Atorvastatin 10 mg daily # Tobacco use disorder Plan: Continue cessation counseling, nicotine patch PRN # Deconditioning / mobility Now alert, stable, able to ambulate. Plan: * PT consult ordered for mobility and strengthening * Encourage ambulation as tolerated * Encourage out of bed to chair Health Maintenance : Diet: Renal, low sodium Thromboprophylaxis: SCD IVF: Discontinued (on dialysis) GI Prophylaxis: Famotidine 20 mg PO daily Disposition: Continue inpatient monitoring; reassess renal function and calcium tomorrow Code Status: Full ----- Plan discussed with attending physician Dr. Sylvia Franco MD PGY-1 Internal Medicine Attending Provider Attestation/Addendum Patient seen and examined with resident physician Dr. Franco. Note reviewed, agree with findings and recommendations. Patient admitted with EDWARD Patient currently seen on dialysis. Tolerating dialysis without any problems. Hemodialysis for 2.5 hours, 2K, ultrafiltration0 L, Epogen 6000, no heparin ordered. Plan of care discussed with the dialysis nurse. Please see dialysis flowsheet for further details. Third dialysis scheduled for Tuesday. Outpatient dialysis will be arranged.
--- NOTE | 2025-01-19 16:05 | PC.NURSE ---
notified md dr. thacker of pt heart rate maintaining at 106-125 afib. bp 110/71. md acknowledged. stated to upgrade patient to telemetry and to give 10mg of diltiazem iv x1. pt alert and oriented. pt denies palpitations or chest pain at this time. no sings of distress ntoed.
--- NOTE | 2025-01-19 16:45 | PC.NURSE ---
gave bedside report to polo in tele room [id number]. pt denied chest pain or palpitations. no sings of distress noted.
--- NOTE | 2025-01-19 18:00 | ESCONSULT_ITS ---
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 Bryce JOHN agree with treatment plan recommendation as documented will continue to monitor the patient. 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 He took a trip to [place] recently and during that trip he was progressively tired over the course of a few days with associated dyspnea on exertion, confusion and slow responses per , decreased appetite, and gait disturbances. Denies any chest pain or shortness of breath at time of evaluation at bedside in telemetry. Also denies dizziness, syncope, orthopnea, PND, or lower extremity edema. In the ED, initial vitals showed BP of 163/74 but otherwise stable. CBC showed chronic but stable anemia 10.4. CHEM panel showed creatinine 8.5, BUN 63, GFR 6 with calcium of 13.2 but PTH within normal limits. CXR showed mild vascular congestion. EKG showed sinus rhythm with PACs though read is atrial fibrillation. CT head negative. Renal ultrasound showed bilateral renal cortical thinning and moderate bilateral renal parenchymal scar formation without hydronephrosis. Cardiology consulted for possible new onset atrial fibrillation. cc:: cc: Diamond Ward MD Exam Vital Signs Temp Pulse Resp BP Pulse Ox O2 Del Method O2 Flow Rate 97.1 F 97 19 107/71 95 Nasal Cannula 2 01/19/25 16:00 01/19/25 17:44 01/19/25 16:00 01/19/25 17:06 01/19/25 16:00 01/19/25 16:00 01/18/25 14:00 Narrative Exam General: AOx3, no acute distress, able to speak full sentences HEENT: NC/AT, mucous membranes moist, bilateral sclera anicteric Cardiovascular: distant heart sounds Pulmonary: clear to auscultation bilaterally, no rales/rhonchi/wheezes Abdominal: soft, non-tender, non-distended, no rebound/guarding, normal bowel sounds present Musculoskeletal: normal ROM, no peripheral edema Skin: right IJ catheter in place and appears C/D/I, warm and dry, intact, no rashes Neuro: CN II-XII intact, no focal deficits Results Labs 01/19/25 05:08 01/19/25 05:08 Labs: Short CBC 01/19/25 Range/Units 05:08 WBC 5.9 (3.8-10.6) Thou/mm3 Hgb 9.5 L (13.5-16.0) g/dL Hct 29.3 L (41.0-53.0) % Plt Count 172 D (140-440) Thou/mm3 BMP 01/19/25 05:08 Sodium 143 Potassium 3.4 Chloride 105 Carbon Dioxide 26.9 BUN 40 H Creatinine 5.7 H* D Glucose 103 Calcium 10.1 Liver Function 01/19/25 Range/Units 05:08 Albumin 3.4 (3.4-4.8) gm/dL Quality Measures Quality Measures VTE prophylaxis Advance care planning discussed with:: patient and spouse Medications Home Medications and Allergies Home Medications ?Medication ?Instructions ?Recorded ?Confirmed ?Type doxazosin 2 mg tablet 2 mg PO BID 07/01/17 5 History aspirin 81 mg chewable tablet 81 mg PO DAILY 10/08/17 01/15/25 History buspirone 15 mg tablet 15 mg PO DAILY 10/08/1711/02 History amlodipine 5 mg-benazepril 20 mg 1 cap PO QDAY 0 01/15/25 History capsule atorvastatin 10 mg tablet 10 mg PO HS 06/11/19 5 History cyanocobalamin (vitamin B-12) 1,000 mcg PO QDAY 01/15/25 History 1,000 mcg tablet epoetin jovanna 10,000 unit/mL 10,000 unit subcut QWEEK 0 06/11/19 01/15/25 History injection solution (Procrit) calcitriol 0.5 mcg capsule 0.5 mcg PO Q12H 01/15/25 History denosumab 60 mg/mL subcutaneous 60 mg subcut .q6mos 01/15/25 History syringe (Prolia) famotidine 20 mg tablet 20 mg PO QDAY 01/15/2501/15 History patiromer calcium sorbitex 8.4 8.4 g PO QDAY 01/15/25 01/15/25 History gram oral powder packet (Veltassa) Allergies Allergy/AdvReac Type Severity Reaction Status Date / Time No Known Allergies Allergy Verified 01/15/25 09:06 Visit Medications Aspirin (Aspirin 81 Mg Chew) 81 mg PO DAILY ZULEYMA On Hold: 01/18/25 05:42 Stop: 02/15/25 15:04 Last Admin: 01/17/25 09:17 Dose: 81 mg Atorvastatin Calcium (Atorvastatin Calcium 10 Mg Tablet) 10 mg PO HS ZULEYMA Stop: 02/15/25 20:59 Last Admin: 01/18/25 21:18 Dose: 10 mg Buspirone HCl (Buspirone Hcl 5 Mg Tablet) 15 mg PO DAILY ZULEYMA Stop: 02/16/25 08:59 Last Admin: 01/19/25 08:24 Dose: 15 mg Doxazosin Mesylate (Doxazosin Mesylate 2 Mg Tablet) 2 mg PO BID ZULEYMA On Hold: 01/19/25 17:40 Stop: 02/15/25 15:04 Last Admin: 01/19/25 08:26 Dose: Not Given Epoetin Jovanna (Epoetin Jovanna-Epbx Inj 10,000 Unit/Ml Vial (Non-Esrd)) 10,000 unit SC QWEEK ZULEYMA Stop: 02/22/25 08:59 Famotidine (Famotidine Inj 10 Mg/Ml Vial 2 Ml) 20 mg IVP QDAY ZULEYMA Stop: 02/15/25 08:59 Last Admin: 01/19/25 08:28 Dose: Not Given Heparin Sodium (Porcine) (Heparin Sod Inj 1000 Unit/Ml Vial 10 Ml) 3,500 unit INDWELLCAT X1 PRN PRN Reason: DIALYSIS Stop: 02/01/25 17:04 Last Admin: 01/19/25 11:13 Dose: 3,500 unit Iron Sucrose (Iron Sucrose Cplx Inj 20 Mg/Ml Vial 5 Ml) 200 mg IVP QDAY ZULEYMA Stop: 01/20/25 10:14 Last Admin: 01/19/25 08:29 Dose: Not Given Lorazepam (Lorazepam 0.5 Mg Tablet) 0.25 mg PO HS [facility] Stop: 01/24/25 20:59 Discontinued Medications Diltiazem HCl (Diltiazem Inj 5 Mg/Ml Vial 5 Ml) 10 mg IV X1 ONE Stop: 01/19/25 16:25 Last Admin: 01/19/25 17:06 Dose: Not Given Epoetin Jovanna (Epoetin Jovanna-Epbx Inj 10,000 Unit/Ml Vial (Non-Esrd)) 10,000 unit SC X1 ONE Stop: 01/18/25 14:31 Last Admin: 01/18/25 15:34 Dose: 10,000 unit Fentanyl Citrate (Fentanyl Cit Inj 50 Mcg/Ml Amp 2ml) 75 mcg IVP X1 ONE Stop: 01/18/25 13:47 Last Admin: 01/18/25 13:46 Dose: 75 mcg Heparin Sodium (Beef Lung) (Heparin Sod Lock Syr 100 Unit/Ml) 500 unit STFIELD X1 ONE Stop: 01/18/25 13:47 Last Admin: 01/18/25 13:47 Dose: 500 unit Heparin Sodium (Porcine) (Heparin Sod Inj 5000 Unit/Ml Vial) 5,000 unit SC Q12HR ZULEMYA Stop: 01/29/25 20:59 Last Admin: 01/17/25 09:18 Dose: 5,000 unit Heparin Sodium (Porcine) (Heparin Sod Inj 1000 Unit/Ml Vial) 3,500 unit INDWELLCAT X1 ONE Stop: 01/18/25 14:02 Last Admin: 01/18/25 14:10 Dose: 3,500 unit Hydralazine HCl (Hydralazine Hcl 25 Mg Tablet) 25 mg PO TID [facility] Stop: 02/15/25 18:14 Last Admin: 01/16/25 18:34 Dose: 25 mg Hydralazine HCl (Hydralazine Hcl 25 Mg Tablet) 50 mg PO TID [facility] Stop: 02/15/25 20:44 Last Admin: 01/19/25 05:04 Dose: 50 mg Hydralazine HCl (Hydralazine Hcl 25 Mg Tablet) 25 mg PO TID [facility] Stop: 02/18/25 13:59 Last Admin: 01/19/25 14:00 Dose: 25 mg Sodium Chloride (Ns) 1,000 mls @ 999 mls/hr IV .Q1H1M ONE Stop: 01/15/25 12:30 Last Infusion: 01/15/25 12:39 Dose: Infused Sodium Chloride (Ns) 1,000 mls @ 125 mls/hr IV .Q8H ZULEYMA Stop: 02/14/25 12:55 Last Admin: 01/16/25 15:10 Dose: 125 mls/hr Magnesium Sulfate (Magnesium Sulfate Ivpb) 4 gm in 50 mls @ 12.5 mls/hr IV X1 ONE Stop: 01/17/25 11:44 Last Admin: 01/17/25 09:19 Dose: 12.5 mls/hr Magnesium Sulfate (Magnesium Sulfate Ivpb) 2 gm in 50 mls @ 25 mls/hr IV X1 ONE Stop: 01/18/25 17:16 Last Admin: 01/18/25 18:04 Dose: 25 mls/hr Lidocaine HCl (Lidocaine Inj Pf 1% 30 Ml Vial) 7 ml INFL X1 ONE Stop: 01/18/25 13:47 Last Admin: 01/18/25 13:47 Dose: 7 ml Lorazepam (Lorazepam 0.5 Mg Tablet) 0.5 mg PO HS ZULEYMA Stop: 01/22/25 20:59 Last Admin: 01/18/25 22:00 Dose: 0.5 mg Nicardipine HCl (Nicardipine 20 Mg Capsule) 20 mg PO BID ZULEYMA Stop: 02/16/25 20:59 Last Admin: 01/19/25 08:26 Dose: Not Given Potassium Chloride (Potassium Chloride 20 Meq Tabcr) 40 meq PO X1 ONE Stop: 01/17/25 09:07 Last Admin: 01/17/25 11:51 Dose: 40 meq Potassium Chloride (Potassium Chloride 20 Meq Tabcr) 40 meq PO X1 ONE Stop: 01/19/25 10:14 Last Admin: 01/19/25 11:53 Dose: 40 meq Tuberculin PPD (Tuberculin Ppd Inj 5 Unit/0.1 Ml Dose) 5 unit ID X1 ONE Stop: 01/17/25 09:07 Tuberculin PPD (Tuberculin Ppd Inj 5 Unit/0.1 Ml Dose) 5 unit ID X1 ONE Stop: 01/18/25 11:28 Last Admin: 01/18/25 12:01 Dose: 5 unit Assessment & Plan Plan Miller Sin is an 84-year-old male with a history of hypertension, hyperlipidemia, 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 Cardiology consulted for possible new onset atrial fibrillation. #Sinus rhythm with frequent PACs vs MAT Initial EKG reads atrial fibrillation but rhythm interpreted and telemetry reviewed with Dr. Bonilla, and patient likely has sinus rhythm with frequent PACs that is likely secondary to hypercalcemia. However, multifocal atrial tachycardia not excluded given patient has 50-year history of smoking cigarettes but quit 8 years ago. Rate has remained relatively stable under 100 bpm but at times can reach 120s. ? Diltiazem 20 mg IV as needed for heart rate greater than 140 ? Not significantly dialyzed so no dose adjustment needed ? Echocardiogram ordered ? No anticoagulation needed #Acute tubular necrosis superimposed on CKD #Hypercalcemia secondary to vitamin D excess (Rayaldee/Calcitriol-induced) #Anemia of CKD with iron deficiency pattern #Hypertension #Anxiety #Insomnia #Hyperlipidemia #History of tobacco use #Deconditioning/mobility ? Continue management per primary team ----- Plan discussed with attending physician Dr. Chad John MD PGY-2 Internal Medicine
[2025-01-19 18:39] LABS: Albumin, Serum 3.8 gm/dL (3.4-4.8); Anion Gap 11 (7-16); BUN/Creatinine Ratio 5 Ratio (12-20); Blood Urea Nitrogen 21 mg/dL (9-23); Calcium 10.0 mg/dL (8.3-10.6); Calcium (Corrected) 10.2 mg/dL (8.5-10.1); Carbon Dioxide 27.1 mMol/L (20.0-31.0); Chloride 104 mMol/L (98-107); Creatinine (Component) 4.2 mg/dL (0.6-1.3); Estimated Creatinine Clearance 14.6 mL/min (>60); Glucose 114 mg/dL (74-106); Magnesium 2.0 mg/dL (1.6-2.6); Osmolality,Calculated 287 (275-295); Phosphorous 1.9 mg/dL (2.4-5.1); Potassium 3.9 mMol/L (3.4-5.1); Sodium 142 mMol/L (136-145); eGFR 13 See Note
--- NOTE | 2025-01-19 19:17 | ECHO_ITS ---
Transthoracic Echo Report Ht (in): 72 Wt (lb): 200 Exam Location: Echo Lab Status: Inpatient Engineering Technologist: Judy Mao Indications: Procedure Performed: BP: 145 / 85 HR: 68 Technical Quality: Technically difficult study MEASUREMENTS (Male / Female) Normal Values 2D ECHO LVOT Diameter 2.4 cm LV Ejection Fraction MOD 4C 67.0 % LV Cardiac Index MOD 4C 2678.5 cm?/min?m? LV Ejection Fraction 4C AL 67.6 % LV Cardiac Index 4C AL 2832.8 cm?/min?m? LV Ejection Fraction MOD 2C 58.2 % LV Cardiac Index MOD 2C 1488.8 cm?/min?m? LV Ejection Fraction 2C AL 61.5 % LV Cardiac Index 2C AL 1732.5 cm?/min?m? DOPPLER AV Peak Velocity 215.0 cm/s AV Peak Gradient 18.5 mmHg AV Mean Gradient 8.0 mmHg AV Velocity Time Integral 41.0 cm LVOT Peak Velocity 96.8 cm/s LVOT Peak Gradient 3.7 mmHg LVOT Velocity Time Integral 20.3 cm LVOT Cardiac Index 2890.5 cm?/min?m? AV Area Cont Eq vti 2.2 cm? AV Area Cont Eq pk 2.0 cm? MV Peak Velocity 145.0 cm/s MV Peak Gradient 8.4 mmHg MV Mean Velocity 75.5 cm/s MV Mean Gradient 3.0 mmHg MV Area PHT 5.1 cm? MR Peak Velocity 269.0 cm/s MR Peak Gradient 28.9 mmHg Mitral E Point Velocity 84.4 cm/s Mitral A Point Velocity 139.0 cm/s Mitral E to A Ratio 0.6 LV E' Lateral Velocity 8.9 cm/s Mitral E to LV E' Lateral Ratio 9.5 LV E' Septal Velocity 11.7 cm/s Mitral E to LV E' Septal Ratio 7.2 TR Peak Velocity 284.0 cm/s TR Peak Gradient 32.3 mmHg FINDINGS Left Ventricle Normal left ventricular size, wall thickness. There is grade I diastolic dysfunction of the left ventricle (impaired relaxation pattern). The ejection fraction is visually estimated at 65 %. Right Ventricle The right ventricle is normal in size and systolic function. Left Atrium Left atrium not well visualized. Right Atrium Right atrium is not well visualized. Atrial Septum The interatrial septum appears normal with no evidence of a shunt. Aorta The aorta is normal by two-dimensional, color flow and Doppler interrogation. Mitral Valve Mild mitral annular calcification. Trace mitral regurgitation. Aortic Valve Aortic valve sclerosis. Mild aortic valve regurgitation. Tricuspid Valve The tricuspid valve is normal by two-dimensional, color flow and Doppler interrogation. There is mild tricuspid valve regurgitation. Pulmonic Valve The pulmonic valve is not well visualized. There is no significant pulmonic valve regurgitation. Vessels The pulmonary artery appears normal. The inferior vena cava pulmonary and hepatic veins appear normal. Pericardium There is a small pericardial effusion. CONCLUSIONS Indication: Frequent PACs VS MAT Normal LV size. There is grade I diastolic dysfunction. Estimated EF at 65 %. The RV is normal in size and systolic function. Mild MAC. withTrace MR. Aortic valve sclerosis. with Mild Aortic regurgitation Mild tricuspid regurgitation There is a small pericardial effusion. Alicia Eason (Electronically Signed) Final Date: 20 January 2025 18:48
[2025-01-19] MEDS: ATORVASTATIN CALCIUM 10 MG TABLET PO (20:23)
[2025-01-20] VITALS: BP 127/72; PULSE 94; PULSE 99; RESP 12; TEMP 36.1; O2SAT 94
[2025-01-20 04:00] VITALS: BP 107/73; PULSE 80; PULSE 94; RESP 17; TEMP 36.1; O2SAT 93
[2025-01-20 08:00] VITALS: BP 145/85; PULSE 105; PULSE 68; RESP 19; TEMP 36.3; O2SAT 93
[2025-01-20] MEDS: FAMOTIDINE INJ 10 MG/ML VIAL 2 ML 20 MG IVP (08:03)
[2025-01-20] MEDS: IRON SUCROSE CPLX INJ 20 MG/ML VIAL 5 ML 200 MG IVP (08:04)
--- NOTE | 2025-01-20 08:20 | ESPR_ITS ---
Documentation for date of: 01/20/25 Subjective Subjective Interval history: Interval history: Mr. Sin is a 79-year-old gentleman with a past medical history significant for hypertension, PANCA vasculitis, chronic kidney disease III/IV (baseline creatinine ~2.3 since 2019), and prior TIA (2018) secondary hyperparathyroidism (on calcitriol), anemia (on Procrit,)HLD, Anxiety was referred from his primary care physician( DR. Ward) for altered mental status patient went to [place] for a trip last week and while during the trip patient reports feeling progressively fatigued for the past several days and mildly short of breath with exertion but denies chest pain, orthopnea, PND, lower-extremity swelling, fever, chills, nausea, vomiting, diarrhea, abdominal pain, dysuria, or changes in urine color. stated patient has been very slow in response and confused. Does have gait imbalance. Decreased appetite for the last few days. No dizziness, or syncope. No recent contrast exposure, illness, or new medications aside from his usual antihypertensives and supplements. He takes Rayaldee//calcitriol for secondary hyperparathyroidism but no other vitamin D or calcium products. He was found to have Cr 8.5 mg/dL (from baseline 2.3), BUN 63, eGFR 6, and Ca 13.2 mg/dL. PTH is normal. UA was negative for infection. Chest X-ray showed mild vascular congestion. Head CT negative for acute hemorrhage. EKG showed atrial fibrillation without acute ischemic changes. He was sent to the ED for further evaluation and admission for EDWARD on CKD and hypercalcemia. 01/16/2025: Patient seen and evaluated at bedside. He is alert, oriented ?3, and answering all questions appropriately. Confusion resolved. Denies chest pain, SOB, nausea, vomiting, or abdominal pain. Tolerating diet and reports feeling stronger today. Today?s labs: Calcium improved to 11.7 (from 13.2), creatinine 7.7 (from 8.5), GFR stable at 6, potassium 3.5, sodium 146, chloride 108, WBC 5.6, hemoglobin 9.5. UA negative, urine tox negative, hepatitis panel negative. Iron studies: Iron 31, TIBC 206, saturation 15%, UIBC 175 ? consistent with iron deficiency pattern. 01/17/2025: Patient seen and evaluated this morning. He is alert and oriented ?3, reports feeling fine today and denies chest pain, SOB, dizziness, nausea, or vomiting. Appetite good, tolerating oral intake. Started nightly Ativan 0.5 to help patient's sleep and his anxiety. Overnight: Had episodes of hypertension, now controlled after starting Hydralazine TID. Labs today: * WBC 5.2, Hgb 9.0, Hct 28, Platelets 187 * Na 145, K 3.2 (repleted with 40 mEq PO KCl), Cl 107, CO2 25 * Cr 6.8 from 7.7, GFR 7 from 6 * Ca 11.8 from 11.7, Phos 3.9, Mg 1.2 (repleted with 4 g IV Mg) * Urine output present but limited. Heparin held. PPD and Hepatitis panel ordered in preparation for possible dialysis. Patient made NPO after midnight for possible dialysis catheter placement tomorrow if renal function and calcium do not improve. Order placed to discontinue Smith, but catheter still in place this morning. Order placed for out of bed to chair and PT follow-up. 01/18/2025: Patient seen and evaluated this morning while resting in bed. He was sleeping comfortably but awoke to voice and responded appropriately. He states he feels fine and denies any pain, shortness of breath, nausea, or dizziness. at bedside reports that after receiving Ativan last night, he slept through most of the night and seemed much calmer. Overnight: He experienced bouts of hypertension, so Nicardipine 20 mg PO BID was started in addition to Hydralazine TID, with improved blood pressure control this morning. Labs: WBC 6.3, Hgb 9.3, Hct 28.9, Platelets 208, Na 142, K 3.5, Cl 106, CO2 25, BUN 42, Cr 7.2 (from 6.8 yesterday), GFR 7 (unchanged), Glucose 94, Ca 11.7 (stable), Mg 1.6 (replete with 2g iv) , Phos 3.0 Patient and were informed about his persistent renal failure and hypercalcemia despite conservative management and the need for dialysis. They understood and agreed to proceed. Dialysis catheter placed today, and patient will receive dialysis later today. 01/19/2025: Patient seen and evaluated this morning during dialysis. He was awake, cooperative, and stated he is doing fine overall. However, he appeared slightly more drowsy and off compared to prior days, likely related to Ativan. Plan to reduce Ativan from 0.5 mg -> 0.25 mg nightly. Overnight: Blood pressure was noted to be on the softer side with morning BP 93/69 and pulse 86. In response, Hydralazine dose reduced from 50 mg -> 25 mg TID. Will continue to monitor closely and if BP remains soft, will discontinue Hydralazine and continue with Nicardipine and Doxazosin only. Labs: WBC 5.9, Hgb 9.5, Hct 29, Platelets 172, Na 143, K 3.4 (repleted with 40 mEq PO KCl), Cl 105, CO2 27, BUN 40, Cr 5.7 (from 7.2 yesterday), GFR improving, Ca 10.6, Mg 2.2, Phos 3.1. Patient tolerated dialysis well without complications. Reports no chest pain, shortness of breath, or dizziness. Appetite stable. 01/20/2025 patient comfortable. Will be scheduled for dialysis tomorrow and postdialysis can be discharged. at bedside. Nurse stated patient had A-fib this morning. Transferred patient to telemetry. Dr. Eason consult ordered. Review of Systems Review of Systems Narrative Review of Systems: Patient confused. Memory lapses noted. Denies any chest pain, shortness of breath. Denies any nausea, vomiting Exam Vital Signs Temp Pulse Resp BP Pulse Ox O2 Del Method O2 Flow Rate 36.1 C 80 17 107/73 93 L Room Air 2 01/20/25 04:00 01/20/25 04:00 01/20/25 04:00 01/20/25 04:00 01/20/25 04:00 01/20/25 00:00 01/18/25 14:00 Narrative Exam General: Awake, mildly drowsy but oriented ?3, no acute distress HEENT: Anicteric, mucous membranes moist Neck: No JVD, dialysis catheter intact and clean Cardiac: regular rhythm, rate controlled, no murmurs Lungs: Clear to auscultation bilaterally Abdomen: Soft, non-tender, no distention Extremities: No edema, pulses palpable Neuro: Alert, follows commands, mildly slowed responses. Seems slightly confused with memory lapses Skin: Warm, dry, no rash Objective Labs 01/21/25 04:44 01/21/25 04:44 Labs: Laboratory Results - last 24 hr 01/19/25 17:51 Sodium 142 Potassium 3.9 D Chloride 104 Carbon Dioxide 27.1 Anion Gap 11 BUN 21 Creatinine 4.2 H* D Estim Creat Clear Calc 14.6 L eGFR 13 L* BUN/Creatinine Ratio 5 L Glucose 114 H Calculated Osmolality 287 Calcium 10.0 Corrected Calcium 10.2 H Phosphorus 1.9 L Magnesium 2.0 Albumin 3.8 Assessment & Plan Additional Assessment & Plan Additional Plan: 79-year-old male with ATN superimposed on CKD stage IV and prior vitamin D?mediated hypercalcemia, currently undergoing dialysis. Renal function improving (Cr 7.2 -> 5.7), calcium trending down (11.7 -> 10.6). BP softer today, requiring medication adjustment. Mentation slightly slowed, likely related to Ativan, dose decreased. # Acute tubular necrosis superimposed on CKD IV- RPGN Worsening renal function despite correction of hypercalcemia and hydration. Pattern consistent with acute tubular necrosis secondary to ischemic or toxic insult on chronic parenchymal disease. Underlying vasculitic kidney disease, hypercalcemia-induced vasoconstriction, and prolonged renal hypoperfusion leading to tubular injury. Ultrasound shows chronic scarring without obstruction, consistent with intrinsic renal injury. Labs show improved creatinine and persistent low GFR despite stable hemodynamics and fluid optimization. Plan: * Dialysis catheter placed * Continue hemodialysis protocol per nephrology * Hold Amlodipine?Benazepril * Strict I&O, daily BMP and calcium * Monitor urine output and fluid balance closely * Continue to assess for renal recovery post-dialysis # Hypercalcemia secondary to vitamin D excess (Rayaldee/Calcitriol-induced) Ca improving from 13.2 -> 10.6.; PTH normal, 25-OH Vit D high. Plan: * Hold Rayaldee and Calcitriol * Trend calcium and BMP daily * If Ca >12 or symptomatic will consider calcitonin or bisphosphonate #Anemia of CKD with iron deficiency pattern Iron 31, TIBC 206, sat 15%. Plan: * Continue IV Venofer 200 mg IV daily ? 5 doses (start 01/16-01/20) * Continue Procrit 10,000 units SQ weekly * Monitor CBC and repeat iron studies after completion # Hypertension BP soft this morning at 93/69, improved since reduction in meds. Plan: * Reduce Hydralazine to 25 mg PO TID (was 50 mg) * Continue Nicardipine 20 mg PO BID and Doxazosin 2 mg BID * If BP remains soft, discontinue Hydralazine and maintain current regimen * Continue close BP monitoring # Arrythmia HR 86, asymptomatic. Plan: * Continue telemetry * Rate monitoring only * Continue aspirin 81 mg daily; defer anticoagulation until renal function stabilizes--cardiology does not think it is A-fib. # Anxiety / Insomnia Appears mildly sedated; good sleep overnight. Plan: * Reduce Ativan to 0.25 mg PO at bedtime PRN * Continue Buspirone 15 mg daily * Monitor for somnolence or further sedation # Hyperlipidemia Plan: Continue Atorvastatin 10 mg daily # Tobacco use disorder Plan: Continue cessation counseling, nicotine patch PRN # Deconditioning / mobility Now alert, stable, able to ambulate. Plan: * PT consult ordered for mobility and strengthening * Encourage ambulation as tolerated * Encourage out of bed to chair Health Maintenance : Diet: Renal, low sodium Thromboprophylaxis: SCD IVF: Discontinued (on dialysis) GI Prophylaxis: Famotidine 20 mg PO daily Disposition: Continue inpatient monitoring; reassess renal function and calcium tomorrow Code Status: Full Quality - progress note Quality Measures Quality Measures: VTE prophylaxis Reason for Continued Stay Reason for Continued Stay: further monitoring
[2025-01-20 12:00] VITALS: BP 123/84; PULSE 91; PULSE 98; RESP 13; TEMP 36.3; O2SAT 92
[2025-01-20 16:00] VITALS: BP 135/80; PULSE 81; PULSE 84; RESP 18; TEMP 36.2; O2SAT 95
--- NOTE | 2025-01-20 19:10 | ESPR_ITS ---
RE: SHAHLA BABB : 1940 DATE OF SERVICE: 01/20/2025 SUBJECTIVE: The patient is doing fairly well, has no shortness of breath or chest pain. Patient had a cardiac arrhythmia mostly PACs. No evidence of A-fib. I reviewed the EKG today again. He still has a lot of PACs but no A-fib. Echocardiogram was completed, showed ejection fraction normal. There is mild mitral calcification with mild mitral regurgitation, mild aortic regurgitation, otherwise very negative study. Patient reassured about these findings. OBJECTIVE: General: Today's exam alert, awake and in no distress. Vital Signs: Blood pressure 134/80, pulse 80. Neck: Supple. No JVD. Chest and Lungs: Mostly clear. No rales, rhonchi Heart: S1, S2 irregular. Abdomen: Thin and soft. Extremities: No edema. /Rectal: Not performed. IMPRESSION: 1. Frequent premature atrial contractions, cardiac arrhythmia but no evidence of atrial fibrillation. 2. Mild aortic regurgitation and mitral regurgitation insignificant. RECOMMENDATIONS: We will continue further medical management. Will monitor the patient's cardiac arrhythmias. If the patient develops atrial fibrillation, we will reevaluate the patient. Patient can be discharged home from cardiac point of view. DT: 18:53:10 TT: 19:08:00 Ref: [id number] - TID: [id number]
[2025-01-20 20:00] VITALS: BP 164/86; PULSE 84; PULSE 91; RESP 23; TEMP 36.5; O2SAT 96
[2025-01-20] MEDS: ATORVASTATIN CALCIUM 10 MG TABLET PO (21:34)
[2025-01-21] VITALS (21 sets, daily range): BP systolic 117–200; BP diastolic 65–124; PULSE 66–111; RESP 13–22; TEMP 36–37.1; O2SAT 95–96; BMI 26.6
[2025-01-21 05:48] LABS: Basophils # (Auto) 0.0 Thou/mm3 (0.0-0.2); Basophils % (Auto) 1 % (0-2.5); Eosinophils # (Auto) 0.2 Thou/mm3 (0.0-0.5); Eosinophils % (Auto) 3 % (0-10); Hematocrit 29.9 % (41.0-53.0); Hemoglobin 9.4 g/dL (13.5-16.0); Immature Granulocytes Auto 0.07 Thou/mm3 (0.00-0.00); Lymphocytes # (Auto) 1.2 Thou/mm3 (1.0-4.8); Lymphocytes % (Auto) 21 % (10-50); Mean Corpuscular HGB Conc 31.4 g/dl (31.0-37.0); Mean Corpuscular Hemoglobin 28.5 pg (25.0-35.0); Mean Corpuscular Volume 91 fL (80-100); Monocytes # (Auto) 0.9 Thou/mm3 (0.0-0.8); Monocytes % (Auto) 14 % (0-12); Neutrophils # (Auto) 3.6 Thou/mm3 (1.8-7.7); Neutrophils % (Auto) 61 % (37-80); Nucleated Red Blood Cell # 0.00 Thou/mm3 (0.00-0.00); Nucleated Red Blood Cell % 0 /100 WBC (0); Platelet Count 196 Thou/mm3 (140-440); RDW Standard Deviation 46.0 fL (35.1-43.9); Red Blood Count 3.30 Miln/mm3 (4.50-5.90); White Blood Count 6.0 Thou/mm3 (3.8-10.6)
[2025-01-21 06:25] LABS: Albumin, Serum 3.7 gm/dL (3.4-4.8); Anion Gap 10 (7-16); BUN/Creatinine Ratio 5 Ratio (12-20); Blood Urea Nitrogen 29 mg/dL (9-23); Calcium 10.2 mg/dL (8.3-10.6); Calcium (Corrected) 10.4 mg/dL (8.5-10.1); Carbon Dioxide 27.9 mMol/L (20.0-31.0); Chloride 105 mMol/L (98-107); Creatinine (Component) 5.5 mg/dL (0.6-1.3); Estimated Creatinine Clearance 11.2 mL/min (>60); Glucose 87 mg/dL (74-106); Magnesium 2.0 mg/dL (1.6-2.6); Osmolality,Calculated 289 (275-295); Phosphorous 2.4 mg/dL (2.4-5.1); Potassium 3.6 mMol/L (3.4-5.1); Sodium 143 mMol/L (136-145); eGFR 10 See Note
[2025-01-21] MEDS: FAMOTIDINE INJ 10 MG/ML VIAL 2 ML 20 MG IVP (09:27)
--- NOTE | 2025-01-21 09:29 | ESDS_ITS ---
Planned Discharge Date 01/21/25 DS: Providers Provider Date of admission: 01/15/25 12:55 Primary care physician: Diamond Ward MD Admitting Provider: Diamond Ward MD Attending Provider on Admission: Diamond Ward MD Consults: 01/16/25 09:48 PT [Referral Physical Therapy] Routine Comment: Physician Instructions: 01/18/25 11:59 Referral Discharge Planning Routine Comment: Outpatient dialysis unit 01/19/25 17:07 Consult to Cardiology Routine Comment: Consulting Provider: Jeanette Bonilla Attending Provider on DC: Diamond Ward MD Discharging Provider: Cristian Franco MD DS: Diagnosis Problem List Completed Was Problem List Reviewed/Reconciled?: Yes Hospital Course Hospital Course Hospital course: Mr. Sin was admitted with acute kidney injury on CKD and vitamin D mediated hypercalcemia. He was initially treated with IV hydration and discontinuation of Rayaldee and Calcitriol. Despite fluids, renal function and calcium levels remained elevated, consistent with acute tubular necrosis superimposed on CKD. He underwent dialysis catheter placement on 01/18/2025 and initiated hemodialysis, which he tolerated well. His creatinine improved from 7.2 -> 5.7 and calcium from 11.7 -> 10.4 following dialysis. On 01/18, he experienced soft blood pressures (100s/60?70s), so Cardizem and Hydralazine were discontinued. However, overnight his blood pressure increased significantly to 180?200/100?120s, prior to dialysis on 01/19. He remained asymptomatic and heart rate was 73. The plan was to remove fluid via dialysis to aid blood pressure control. He was transitioned back to his home antihypertensive regimen of Amlodipine?Benazepril and Doxazosin. Labs remained stable and mentation was normal. He tolerated dialysis well and is medically stable for discharge with outpatient dialysis arranged. Procrit and Veltassa were discontinued. All other home medications were resumed. Diagnosis during admission: # Acute tubular necrosis superimposed on CKD # Hypercalcemia secondary to vitamin D excess (resolved) # Hypertension # Atrial fibrillation, rate controlled # Anemia of CKD # Anxiety / Insomnia # Hyperlipidemia Discharge instructions: -Follow-up with outpatient dialysis center -Follow-up with nephrology in 1 week after discharge for renal function review and dialysis progress. -Monitor blood pressure daily at home. -Encourage daily activity and mobility to prevent deconditioning. -Continue renal diet. -Call or return to ED if experiencing chest pain, confusion, worsening shortness of breath, or swelling. ----- Plan discussed with attending physician Dr. Sylvia Franco MD PGY-1 Internal Medicine Time Spent with Patient Time attestation: Total time spent providing and/or coordinating discharge services: Time spent: Greater than 30 minutes Exam Vital Signs Temp Pulse Resp BP Pulse Ox O2 Del Method O2 Flow Rate 98.5 F 71 18 193/100 H 95 Room Air 2 01/21/25 07:19 01/21/25 09:26 01/21/25 07:19 01/21/25 09:26 01/21/25 07:19 01/21/25 07:15 01/18/25 14:00 Narrative Exam General: Awake, mildly drowsy but oriented ?3, no acute distress HEENT: Anicteric, mucous membranes moist Neck: No JVD, dialysis catheter intact and clean Cardiac: Irregularly irregular rhythm, rate controlled, no murmurs Lungs: Clear to auscultation bilaterally Abdomen: Soft, non-tender, no distention Extremities: No edema, pulses palpable Neuro: Alert, follows commands, mildly slowed responses Skin: Warm, dry, no rash Discharge Plan Plan Patient Disposition: Home w/HOME HEALTH Care Plan Goals: -Follow-up with outpatient dialysis center -Follow-up with nephrology in 1 week after discharge for renal function review and dialysis progress. -Monitor blood pressure daily at home. -Encourage daily activity and mobility to prevent deconditioning. -Continue renal diet. -Call or return to ED if experiencing chest pain, confusion, worsening shortness of breath, or swelling. DIALYSIS TUESDAY, TUESDAY, TUESDAY 06:40 AM-9:40 AM ADDRESS: [address] FIRST SESSION at 06:15 AM on Tuesday01/23/2025 Prescriptions/Referrals Prescriptions/Med Rec: Continued doxazosin 2 mg Tablet 2 mg PO BID aspirin 81 mg Tablet,Chewable 81 mg PO DAILY buspirone 15 mg Tablet 15 mg PO DAILY atorvastatin 10 mg Tablet 10 mg PO HS cyanocobalamin (vitamin B-12) 1,000 mcg Tablet 1,000 mcg PO QDAY amlodipine-benazepril 5-20 mg Capsule 1 cap PO QDAY calcitriol 0.5 mcg capsule 0.5 mcg PO Q12H Patient Comments: TAKE 1 CAPSULE BY MOUTH EVERY DAY famotidine 20 mg tablet 20 mg PO QDAY Patient Comments: TAKE 1 TABLET BY MOUTH EVERY DAY Prolia 60 mg/mL syringe 60 mg subcut .q6mos Discontinued Procrit 10,000 unit/mL Solution 10,000 unit subcut QWEEK Veltassa 8.4 gram powder in packet 8.4 g PO QDAY Referrals: Diamond Ward MD [Primary Care Provider, Nephrology] Patient/Caregiver Discharge Instructions Discharge Activity: activity as tolerated Education Materials: Acute Kidney Failure Dc Print Language: Albanian Stand Alone Forms: [employer] Award Info., Patient Portal Info Letter Discharge Order Discharge Orders: Discharge (Routine); Ordered 01/21/25 Ordered By: Cristian Franco Quality Discharge Quality Measures VTE prophylaxis MD Attestestation MD Attestation Patient seen and examined with resident physician Dr. Franco. Note reviewed, agree with findings and recommendations. Patient currently seen on dialysis. Tolerating dialysis without any problems. Hemodialysis for 3 hours, 2K, ultrafiltration 1 L, Epogen 6000, no heparin ordered. Plan of care discussed with the dialysis nurse. Please see dialysis flowsheet for further details. Blood pressure on the higher side-resume home blood pressure medications. Still seems to be slightly confused. Patient will be discharged today with outpatient dialysis scheduled.
[2025-01-21] MEDS: EPOETIN ALFA-EPBX INJ 10,000 UNIT/ML VIAL (NON-ESRD) 10000 UNIT IV (09:41)
[2025-01-21] MEDS: HEPARIN SOD INJ 1000 UNIT/ML VIAL 10 ML 3500 UNIT INDWELLCAT (10:18)
--- NOTE | 2025-01-21 11:50 | PC.NURSE ---
Discharge pending d/t HD chair time and days, SSW working on it, Charge nurse made aware.
--- NOTE | 2025-01-21 12:16 | PC.SS ---
TRACY confirmed with [facility] staff, Romy, authorization has been obtained. [employer] confirmed dialysis center obtained TB results. Patient's chair schedule is M,W,F 06:40 am to 9:40 am. Patient instructed to be at initial appointment at 06:15 am. Patient scheduled for dialysis on Tuesday. Bedside nurse updated.
--- NOTE | 2025-01-21 15:09 | ESPR_ITS ---
<Statement entered by Jeanette Bonilla MD - 01/23/25 12:11> I personally examined and evaluated the patient with resident physician PGY 2 Dr. Bryce JOHN patient is doing quite well now no A-fib episode left renal function normal but ejection fraction normal as well reassured with these findings will see patient as an outpatient for follow-up if necessary Documentation for date of: 01/21/25 Subjective Subjective Interval history: No acute overnight events. Seen ane examined at bedside and patient does not have any complaints, including shortness of breath, chest discomfort, or palpitations. Telemetry reviewed and continues to have frequent PACs so no need for anticoagulation or rate controlling medications. Dialysis chair arranged outpatient and ready for discharge. Exam Vital Signs Temp Pulse Resp BP Pulse Ox O2 Del Method O2 Flow Rate 96.8 F 105 H 15 132/68 H 96 Room Air 2 01/21/25 11:50 01/21/25 12:00 01/21/25 11:50 01/21/25 11:50 01/21/25 11:50 01/21/25 11:50 01/18/25 14:00 Narrative Exam General: AOx3, no acute distress, able to speak full sentences HEENT: NC/AT, mucous membranes moist, bilateral sclera anicteric Cardiovascular: distant heart sounds Pulmonary: clear to auscultation bilaterally, no rales/rhonchi/wheezes Abdominal: soft, non-tender, non-distended, no rebound/guarding, normal bowel sounds present Musculoskeletal: normal ROM, no peripheral edema Skin: right IJ catheter in place and appears C/D/I, warm and dry, intact, no rashes Neuro: CN II-XII intact, no focal deficits Objective Labs 01/21/25 04:44 01/21/25 04:44 Labs: Laboratory Results - last 24 hr 01/21/25 04:44 WBC 6.0 RBC 3.30 L Hgb 9.4 L Hct 29.9 L MCV 91 MCH 28.5 MCHC 31.4 RDW Std Deviation 46.0 H Plt Count 196 Neut % (Auto) 61 Lymph % (Auto) 21 Sibley % (Auto) 14 H Eos % (Auto) 3 Baso % (Auto) 1 Neut # (Auto) 3.6 Lymph # (Auto) 1.2 Sibley # (Auto) 0.9 H Eos # (Auto) 0.2 Baso # (Auto) 0.0 Immature Gran # (Auto) 0.07 H Absolute Nucleated RBC 0.00 Immature Gran % 1 H Nucleated RBC % 0 Sodium 143 Potassium 3.6 Chloride 105 Carbon Dioxide 27.9 Anion Gap 10 BUN 29 H Creatinine 5.5 H* D Estim Creat Clear Calc 11.2 L eGFR 10 L* BUN/Creatinine Ratio 5 L Glucose 87 Calculated Osmolality 289 Calcium 10.2 Corrected Calcium 10.4 H Phosphorus 2.4 Magnesium 2.0 Albumin 3.7 Quality Measures Quality Measures VTE prophylaxis Advance care planning discussed with:: patient Assessment & Plan Assessment Current Active Medications: Generic Name Dose Route Start Last Admin Trade Name Freq PRN Reason Stop Dose Admin Amlodipine Besylate 5 mg 01/21/25 09:00 01/21/25 09:25 Amlodipine Besylate 5 Mg Tablet PO 02/20/25 08:59 5 mg QDAY ZULEYMA Administration Aspirin 81 mg 01/16/25 15:05 01/17/25 09:17 Aspirin 81 Mg Chew PO 02/15/25 15:04 81 mg On Hold: 01/18/25 05:42 DAILY ZULEYMA Administration Atorvastatin Calcium 10 mg 01/16/25 21:00 01/20/25 21:34 Atorvastatin Calcium 10 Mg Tablet PO 02/15/25 20:59 10 mg HS ZULEYMA Administration Buspirone HCl 15 mg 01/17/25 09:00 01/21/25 09:26 Buspirone Hcl 5 Mg Tablet PO 02/16/25 08:59 15 mg DAILY ZULEYMA Administration Diltiazem HCl 20 mg 01/19/25 19:16 Diltiazem Inj 5 Mg/Ml Vial 5 Ml IV 02/18/25 19:15 X1 PRN tachycardia Doxazosin Mesylate 2 mg 01/16/25 15:05 01/19/25 08:26 Doxazosin Mesylate 2 Mg Tablet PO 02/15/25 15:04 Not Given On Hold: 01/19/25 17:40 BID ZULEYMA Epoetin Rpashant 10,000 unit 01/23/25 09:00 Epoetin Prashant-Epbx Inj 10,000 Unit/Ml Vial (Non-Esrd) SC 02/22/25 08:59 QWEEK ZULEYMA Famotidine 20 mg 01/16/25 09:00 01/21/25 09:27 Famotidine Inj 10 Mg/Ml Vial 2 Ml IVP 02/15/25 08:59 20 mg QDAY ZULEYMA Administration Heparin Sodium (Porcine) 3,500 unit 01/18/25 17:05 01/21/25 10:18 Heparin Sod Inj 1000 Unit/Ml Vial 10 Ml INDWELLCAT 02/01/25 17:04 3,500 unit X1 PRN Administration DIALYSIS Lisinopril 20 mg 01/21/25 09:00 01/21/25 09:26 Lisinopril 20 Mg Tablet PO 02/20/25 08:59 20 mg QDAY ZULEYMA Administration Protocol Lorazepam 0.25 mg 01/19/25 21:00 01/20/25 21:34 Lorazepam 0.5 Mg Tablet PO 01/24/25 20:59 0.25 mg HS ZULEYMA Administration Plan Miller Sin is an 84-year-old male with a history of hypertension, hyperlipidemia, 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 Cardiology consulted for possible new onset atrial fibrillation. #Sinus rhythm with frequent PACs vs MAT Initial EKG reads atrial fibrillation but rhythm interpreted and telemetry reviewed with Dr. Bonilla, and patient likely has sinus rhythm with frequent PACs that is likely secondary to hypercalcemia. However, multifocal atrial tachycardia not excluded given patient has 50-year history of smoking cigarettes but quit 8 years ago. Rate has remained relatively stable under 100 bpm but at times can reach 120s. ? Diltiazem 20 mg IV as needed for heart rate greater than 140 ? Not significantly dialyzed so no dose adjustment needed ? Echocardiogram ordered ? No anticoagulation needed #Acute tubular necrosis superimposed on CKD #Hypercalcemia secondary to vitamin D excess (Rayaldee/Calcitriol-induced) #Anemia of CKD with iron deficiency pattern #Hypertension #Anxiety #Insomnia #Hyperlipidemia #History of tobacco use #Deconditioning/mobility ? Continue management per primary team ----- Plan discussed with attending physician Dr. Chad John MD PGY-2 Internal Medicine
--- NOTE | 2025-01-22 07:41 | PC.CM ---
Addendum entered by Ruth Ann Ramirez RN 01/22/25 14:28: I texted Dr. Ward again to remind her that I need a home health order. Original Note: I reached out to Dr. Ward to put in home health orders if patient needs home health. Disposition states home with home health but I do not have orders.
--- NOTE | 2025-01-23 09:39 | PC.CC ---
Addendum entered by James Garsia RN 01/23/25 12:59: [facility] accepted and booked, soc 01/23 Original Note: [facility] ref sent out, waiting for responses
== END 2025-01-21 13:15 | disposition home health service (06) | DRG 674 ==
LOC: SERX 09:55 → SERHOLD 13:13 → S2NX 20:31 → S3SX 01-16 14:15 → S2NX 01-19 16:39
PROVIDERS: Admitting Provider Internal Medicine; Emergency Provider Emergency Medicine; PCP Internal Medicine; Visit Provider Internal Medicine
DX: N17.0 Acute kidney failure with tubular necrosis (principal); I12.0 Hypertensive chronic kidney disease with stage 5 chronic kidney disease or end stage renal disease; N25.81 Secondary hyperparathyroidism of renal origin; I77.82 Antineutrophilic cytoplasmic antibody [ANCA] vasculitis; E78.5 Hyperlipidemia, unspecified; N40.0 Benign prostatic hyperplasia without lower urinary tract symptoms; F17.210 Nicotine dependence, cigarettes, uncomplicated; G47.00 Insomnia, unspecified; E83.52 Hypercalcemia; D63.1 Anemia in chronic kidney disease; I48.91 Unspecified atrial fibrillation; Z86.73 Personal history of transient ischemic attack (TIA), and cerebral infarction without residual deficits; Z79.82 Long term (current) use of aspirin; Z79.899 Other long term (current) drug therapy; Z96.651 Presence of right artificial knee joint; N18.6 End stage renal disease; Z98.41 Cataract extraction status, right eye; Z98.42 Cataract extraction status, left eye; Z99.2 Dependence on renal dialysis; F41.9 Anxiety disorder, unspecified
CPT/HCPCS: 36415; 70450; 71045; 76770; 76937; 77001; 80053; 80069; 80074; 80307; 80320; 81001; 82306; 83540; 83550; 83690; 83735; 83880; 83970; 84484; 85025; 85610; 85730; 86580; 93005; 93225; 93306; 96361; 96372; 96374; 97162; 99285; A4314; C1750; C1894; J1642; J1643; J1644; J1756; J3010; J3475; J3490; J7030; J7050; Q5106; A9270; G0480